=== PATIENT | male | born 1970 | race Caucasian/White ===

== ENCOUNTER → 2024-07-29 | Outpatient (CLI) | payer SELFPAY ==
[2024-07-29 12:54] LABS: Absolute Lymphocyte Count 2.24 X10^3/uL (0.83-4.51); Absolute Neutrophil Count 5.5 X10^3/uL (2.0-7.7); Basophil# 0.05 X10^3/uL; Basophil% 0.6 % (0-1); Eosinophil# 0.18 X10^3/uL; Eosinophils% 2.1 % (0-5); Hematocrit 46.8 % (40-54); Hemoglobin 15.4 g/dL (13.0-16.5); Lymphocyte # 2.24 X10^3/ul (0.83-4.51); Lymphocyte % 26.2 % (19-41); Mean Corp Hgb Conc 32.9 g/dL (32-36); Mean Corpuscular Hgb 30.3 pg (27.0-32.0); Mean Corpuscular Volume 91.9 fL (80-94); Mean Platelet Vol. 8.5 fl (6.2-12.0); Monocyte# 0.55 X10^3/uL; Monocyte% 6.4 % (0-10); NRBC Flagged by Analyzer 0 % (0-5); Neutrophil % 64.5 % (47-70); Platelet Count 443 K/mm3 (150-450); RBC Distribution Width CV 12.3 % (11.6-14.6); Red Blood Count 5.09 M/mm3 (4.6-6.2); White Blood Count 8.5 K/mm3 (4.4-11.0)
[2024-07-29 13:10] LABS: Vitamin B12 450 pg/mL (211-911)
[2024-07-29 13:12] LABS: Hemoglobin A1c 5.5 % (3.8-5.6)
[2024-07-29 13:17] LABS: ALB/GLOB Ratio 1.1 RATIO (0.9-2.4); AST(SGOT) 15 U/L (15-37); Alanine Aminotransfer ALT/SGPT 20 U/L (16-61); Alkaline Phosphatase 84 U/L (45-117); Anion Gap 7 (5-15); BUN 12 mg/dL (7-18); BUN/Creat Ratio 15.5 RATIO (10-20); Calcium,Total 9.1 mg/dL (8.5-10.1); Chloride 104 mmol/L (98-107); Cholesterol 201 mg/dL (200); Creatinine, Serum 0.77 mg/dL (0.70-1.30); EST Glomerular Filtration Rate 111 mL/min (>60); Est Glom Filt Rate - Afr Amer 135 mL/min (>60); Globulin 3.8 g/dL (2.2-4.2); Glucose 91 mg/dL (74-106); High Density Lipoprotein 46 mg/dL; Potassium 3.9 mmol/L (3.5-5.1); Protein, Total 7.8 g/dL (6.4-8.2); Sodium Level 138 mmol/L (136-145); Triglycerides 122 mg/dL; Very Low Density Lipoprotein 24 mg/dL (5-40)
== END | disposition home or self-care (01) ==
LOC: VSLAB 11:32
DX: R20.0 Anesthesia of skin (principal); D72.829 Elevated white blood cell count, unspecified; Z13.6 Encounter for screening for cardiovascular disorders; Z13.228 Encounter for screening for other metabolic disorders
CPT/HCPCS: 36415; 80053; 80061; 82607; 83036; 84443; 85025

== ENCOUNTER → 2024-10-15 | Outpatient (CLI) | payer BC, SELFPAY | END | disposition home or self-care (01) | LOC: PSN 08:28 | PROVIDERS: PCP Family Medicine; Referring Provider Internal Medicine Cardiovascular Disease; Visit Provider Internal Medicine Cardiovascular Disease | DX: I10 Essential (primary) hypertension (principal); R00.2 Palpitations; I25.10 Atherosclerotic heart disease of native coronary artery without angina pectoris | CPT/HCPCS: 93225; 93226 ==

== ENCOUNTER → 2024-10-22 | Outpatient (CLI) | payer BC, SELFPAY ==
--- NOTE | 2024-10-22 08:12 | STE_ITS ---
Reason For Study: ARRHYTHMIA Stress Results Protocol: [facility] Protocol Maximum Predicted HR: 166 bpm Target HR: 141 bpm % Maximum Predicted HR: 98 % DurationHeart Rate Stage (mm:ss) (bpm) BP BASELINE 68 128/77 STAGE 1 3:00 107 142/80 STAGE 2 3:00 121 158/80 STAGE 3 3:00 122 152/80 STAGE 4 2:00 163 162/86 RECOVERY 83 128/62 Stress Duration: 11:00 mm:ss Maximum Stress HR: 163 bpm Baseline Echocardiogram Findings Stress Echo Wall motion Data Resting WM Intermediate WM Stress WM ECHO/Stress Test Echo w/o Contrast Interpretation Summary Exercise stress echo. 54-year-old man with a history of chest discomfort and shortness of breath. Resting EKG demonstrates normal sinus rhythm with a rate of 68 bpm normal inter vals are noted resting blood pressure is 128/77 mmHg. The patient exercised according to the r egular [facility] protocol for total duration of 14 minutes. The maximum heart rate attained was 173 bpm w hich is 104% of max impacted heart rate. The patient completed 2 minutes into stage V of the [facility] protocol. At rest there were no ST or T wave changes noted to suggest ischemia and at peak exerci se there was approximately [address] depression noted in leads II, III and aVF a nd 1.7 mm noted in V6 suggestive but not complete diagnostic of ischemia. No clinical angina was note d the test was terminated due to completion of the protocol and leg fatigue. The peak blood pr essure was 168/86 which is a good blood pressure response to exercise. Stress echocardiogram. The resting echocardiogram demonstrated overall preserved left ventricular syst olic function estimated at 55%. No wall motion abnormalities were noted. The patient exercise d according to regular [facility] protocol there was thickening of all [place] except for the basal i nferior wall which appeared to have lack of improvement suggesting possible inferobasal hypokinesi s with exercise. Conclusion: Exercise stress echo with EKG as well as echocardiographic changes suggestive o f inferior basal hypokinesis. This was at a high workload. Ordering Physician: Alfie Teixeira Referring Physician: Alfie Teixeira Performed By: Brigette Ibanez, [facility]
== END | disposition home or self-care (01) ==
LOC: CVS 08:09
PROVIDERS: PCP Family Medicine; Referring Provider Internal Medicine Cardiovascular Disease; Visit Provider Internal Medicine Cardiovascular Disease
DX: I25.10 Atherosclerotic heart disease of native coronary artery without angina pectoris (principal); R00.2 Palpitations; I10 Essential (primary) hypertension
CPT/HCPCS: 93017; 93350

== ENCOUNTER → 2025-09-08 | Outpatient (CLI) | payer BC, SELFPAY ==
--- OUTSIDE RECORDS SUMMARY | 2025-09-08 07:17 | XMS RPT_ITS | CCD ---
Author Organization [facility] Care Team Providers Care Batch Unloader Name Role Phone Unavailable Primary Care Provider Unavailalison Tyler MD, Matty Blair Primary Care Provider CHARLIE DEAN Primary Care Unavailable JOSH GOODE Attending Unavailable Puneet, Renault Attending Unavailable Gray VSC, Rebecca Primary Care Unavailable Puneet, Alfie Attending Unavailable Puneet, Alfie Referring Unavailable Gray VSC, Rebecca Primary Care Unavailable Puneet, Alfie Attending Unavailable Gray VSC, Rebecca Primary Care Unavailable Gray VSC, Rebecca Referring Unavailable Puneet, Alfie Attending Unavailable Puneet, Renault Referring Unavailable Gray VSC, Rebecca Primary Care Unavailable PENCE, NEIL Attending Unavailable PENCE, NEIL Primary Care Unavailable Puneet, Renault Attending Unavailable Puneet, Renault Referring Unavailable Gray VSC, Rebecca Primary Care Unavailable Allergies Allergy Classification Reported Allergen(s) Allergy Type Date of Onset Reaction(s) Facility (19 sources) Aluminum aspirin; Translations: [ASPIRIN] Drug Allergy 3 Other, GI bleeding [facility] (18 sources) bee venom Propensity to adverse reactions 3 Swelling [facility] (19 sources) Penicillins; Translations: [PENICILLINS] Propensity to adverse reactions 3 Other [facility] (1 source) Aspirin Drug Allergy 5 [facility] (1 source) Mold Extract Drug Allergy 5 [facility] (1 source) Penicillins Drug allergy (disorder) 5 [facility] (1 source) bee venom protein (honey bee) Drug allergy (disorder) 5 [facility] Medications Current Medications Medication Drug Class(es) Dates Sig (Normalized) Sig (Original) predniSONE 20 mg oral tablet (4 sources) Start: 08-20-2023 End: 08-29-2023 predniSONE (Deltasone) 20 MG tablet Indications: Low back strain, subsequent encounter Take 3 tabs (60mg) daily for 3 days, then take 2 tabs (40mg) daily for 3 days, then take 1 tab (20mg) daily for 3 days. 18 tablet 0 08/20/2023 08/29/2023 Active Completed/Discontinued Medications Medication Drug Class(es) Dates Sig (Normalized) Sig (Original) cyclobenzaprine hydrochloride 10 mg oral tablet (5 sources) Muscle Relaxant Start: 07-31-2023 End: 09-29-2023 take 1 tablet by mouth three times daily as needed for muscle spasms cyclobenzaprine (Flexeril) 10 MG tablet Indications: Spasm of muscle of lower back Take 1 tablet (10 mg) by mouth 3 times daily as needed for muscle spasms. 30 tablet 0 07/31/2023 08/28/2023 Discontinued (Therapy completed) Problems Active Problems Problem Classification Problem Date Documented Date Episodic/Chronic Cardiac dysrhythmias (1 source) Palpitations; Translations: [Palpitations] Onset: 10-08-2024 Episodic Chronic obstructive pulmonary disease and bronchiectasis (8 sources) Pulmonary emphysema; Translations: [Other emphysema] Onset: 10-16-2023 10-16-2023 Chronic Conditions associated with dizziness or vertigo (1 source) Dizziness and giddiness; Translations: [Dizziness and giddiness] Onset: 10-08-2024 Episodic Coronary atherosclerosis and other heart disease (1 source) Atherosclerotic heart disease of [place] coronary artery without angina pectoris; Translations: [Atherosclerotic heart disease of [place] coronary artery without angina pectoris] Onset: 11-11-2024 Chronic Essential hypertension (1 source) Essential (primary) hypertension; Translations: [Essential (primary) hypertension] Onset: 11-06-2024 Chronic Fluid and electrolyte disorders (2 sources) Dehydration; Translations: [Dehydration] Onset: 04-08-2024 Episodic Other injuries and conditions due to external causes (2 sources) Other injury of unspecified body region, initial encounter; Translations: [Other injury of unspecified body region, initial encounter] Onset: 04-08-2024 Episodic Other lower respiratory disease (1 source) Dyspnea, unspecified; Translations: [Dyspnea, unspecified] Onset: 10-08-2024 Episodic Other nervous system disorders (1 source) Anesthesia of skin; Translations: [Anesthesia of skin] Onset: 09-08-2024 Episodic Other screening for suspected conditions (not mental disorders or infectious disease) (4 sources) Patient encounter status; Translations: [Encounter for screening for lipoid disorders] 08-28-2023 Episodic Peripheral and visceral atherosclerosis (8 sources) Arteriosclerotic vascular disease; Translations: [Unspecified atherosclerosis] Onset: 10-16-2023 10-16-2023 Chronic Sprains and strains (14 sources) Low back strain; Translations: [Strain of muscle, fascia and tendon of lower back, subsequent encounter] Onset: 08-20-2023 08-20-2023 Episodic Past or Other Problems Problem Classification Problem Date Documented Da te Episodic/Chronic Mood disorders (18 sources) Mood disorders Onset: 07-31-2023 07-31-2023 Other circulatory disease (19 sources) Elevated blood pressure; Translations: [Elevated blood-pressure reading, without diagnosis of hypertension] Onset: 08-20-2023 08-20-2023 Episodic Residual codes; unclassified (18 sources) Tobacco use and exposure - finding; Translations: [Tobacco use] Onset: 08-28-2023 08-28-2023 Episodic Spondylosis; intervertebral disc disorders; other back problems (20 sources) Spasm of muscle of lower back; Translations: [Muscle spasm of back] Onset: 07-31-2023 Resolved: 08-28-2023 07-31-2023 Episodic Results Test Name Value Interpretation Reference Range Facility 11-20-2024 36 Left a message to return call. [facility] 3611-19-2024 36 Matty Tyler MD4 hours ago (5:35 AM) Can we contact Kaye and see if he is agreeable to being scheduled for a screening lung CT scan? Left a message to return call. [facility] 3611-18-2024 36 Matty Tyler MD4 hours ago (5:35 AM) Can we contact Kaye and see if he is agreeable to being scheduled for a screening lung CT scan? Left a message to return call. Normal [facility] 36 Can we contact Kaye and see if he is agreeable to being scheduled for a screening lung CT scan? Normal [facility] 36on 11-13-2024 36 This patient has had a prior lung screening CT scan at [facility]. According to our records, he/she is now due for an annual lung screening CT scan. Please evaluate and order this annual screening if your patient still meets lung screening criteria. Normal [facility] Stress Test Echo w/o Contras ton 10-22-2024 Stress Test Echo w/o Contrast [facility] [address] [place] [address] Stress Test Echo w/o Contrast MR#: [id number] Acct: [id number] Name: KAYE CUEVA Rep #: [id number] : 1970 54 From: Alfie Teixeira MD Primary Care: Rebecca Castellano DO Status: G CLI Ordering Dr: Alfie Teixeira MD Sex: M H Reason For Study: ARRHYTHMIA Stress Results Protocol: [facility] Protocol Maximum Predicted HR: 166 bpm Target HR: 141 bpm % Maximum Predicted HR: 98 % DurationHeart Rate Stage (mm:ss) (bpm) BP BASELINE 68 128/77 STAGE 1 3:00 107 142/80 STAGE 2 3:00 121 158/80 STAGE 3 3:00 122 152/80 STAGE 4 2:00 163 162/86 RECOVERY 83 128/62 Stress Duration: 11:00 mm:ss Maximum Stress HR: 163 bpm Baseline Echocardiogram Findings Stress Echo Wall motion Data Resting WM Intermediate WM Stress WM ECHO/Stress Test Echo w/o Contrast Interpretation Summary Exercise stress echo. 54-year-old man with a history of chest discomfort and shortness of breath. Resting EKG demonstrates normal sinus rhythm with a rate of 68 bpm normal intervals are noted resting blood pressure is 128/77 mmHg. The patient exercised according to the regular [facility] protocol for total duration of 14 minutes. The maximum heart rate attained was 173 bpm which is 104% of max impacted heart rate. The patient completed 2 minutes into stage V of the [facility] protocol. At rest there were no ST or T wave changes noted to suggest ischemia and at peak exercise there was approximately [address] depression noted in leads II, III and aVF and 1.7 mm noted in V6 suggestive but not complete diagnostic of ischemia. No clinical angina was noted the test was terminated due to completion of the protocol and leg fatigue. The peak blood pressure was 168/86 which is a good blood pressure response to exercise. Stress echocardiogram. The resting echocardiogram demonstrated overall preserved left ventricular systolic function estimated at 55%. No wall motion abnormalities were noted. The patient exercised according to regular [facility] protocol there was thickening of all [place] except for the basal inferior wall which appeared to have lack of improvement suggesting possible inferobasal hypokinesis with exercise. Conclusion: Exercise stress echo with EKG as well as echocardiographic changes suggestive of inferior basal hypokinesis. This was at a high workload. Ordering Physician: Alfie Teixeira Referring Physician: Alfie Teixeira Performed By: Brigette Ibanez, LORI 10/22/24 1439 Date Alfie Teixeira MD CC: Dr. 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 Alfie Teixeira MD Status: DEP A MB Ordering Dr: Alfie Teixeira MD Date: 10/08/24 Location: [facility] Sex: M H Admitted: [facility]/12 Lead EKG performed by [facility] ECG Report Interpretation ----Sinus Rhythm - occasional ectopic ventricular beat -Left atrial enlargement. BORDERLINEElectronical ly signed on 10/13/2024 at 08:22 by Alfie Teixeira [employer] Version 8610 10/13/24 0828 Date Alfie Teixeira MD CC: Rebecca Castellano DO Date Dictated: 10/08/24 1051 Date Transcribed: 10/08/241050 [employer] Or Livestock Farm Manager: [place] Signed Normal [facility] Cardiology Visit Reporton Cardiology Visit Report [facility] [address] [place], [place] [address] OFFICE VISIT Date of Service: 10/08/24 MR#: [id number] Acct: [id number] Name: KAYE CUEVA Rep #: [id number] : 1970 Provider: Dr. Alfie Teixeira MD Age/Sex: 54/M Location: [facility] Status: Signed HPI HPI History of Present Illness Details: 54-year-old man with a history of hypertension who presents for an evaluation of palpitations and occasional chest discomfort and some shortness of breath. He does have a history of tobacco use and his lipid profile demonstrates a total cholesterol of 201 HDL of 46 and LDL of 131. He has had no dizziness or diaphoresis no near-syncope or syncope he has been compliant with his medications. He also is quite fastidious about his diet actually. He would like to discontinue tobacco use. He has had no yevs syncopal episodes and no sustained palpitations. His physical exam demonstrates clear lung peter regular rate and rhythm and no pedal edema his electrocardiogram demonstrates sinus rhythm with a rate of 85 bpm. 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 Accompanied by: Self Is patient in pain?: Yes Allergies Penicillins Allergy (Mild, Verified 10/08/24 10:46) PT UNSURE OF REACTION mold Adverse Reaction (Intermediate, Verified 10/08/24 10:46) Blue Lips aspirin Adverse Reaction (Mild, Verified 10/08/24 10:46) nosebleeds bee venom protein (honey bee) (bees) Adverse Reaction (Mild, Verified 10/08/24 10:46) Anaphylaxis Medications ???Medication ???Instructions ???Recorded ???Confirmed ???Type valsartan 320 mg tablet 320 mg PO QDAY 09/04/24 10/08/24 History Have you fallen in the past year?: No PFSH Medical History Acute dehydration Essential (primary) hypertension Dyspnea Atherosclerotic cardiovascular disease Palpitations Dizziness Surgical History Hx of carpal tunnel repair Family History Father Multiple sclerosis Heart disease Hypertension Mother Hypotension Social History Smoking Status: Current every day smoker alcohol intake: never substance use type: does not use ROS Const Const: Positive for headache(s); Negative for fatigue, weakness or weight gain ENT ENT: Positive for headache(s); Negative for dizziness, Nosebleed/epistaxis or balance problems Cardio Chest Pain: Yes Frequency: weekly (2x weekly) Character: other (pressure) Onset: exercise Location: right chest Duration: minutes (<5) Exacerbation: exercise Palpitations: Yes feels like its: skipping and other (missed beat) Edema: None Muscle aches with walking: None Resp Respiratory: Positive for SOB with activity; Negative for SOB at rest or SOB orthopnea SOB lying down GI GI: Negative nausea, vomiting or heartburn Musc Musc: Positive for joint pain (chronic; arthritis); Negative for muscle aches/ myalgia, muscle weakness or balance problems Neuro Neuro: Positive for lightheadedness (singular episode with stairs), near syncope and headache(s); Negative for dizziness, syncope or weakness Endo Endo: Negative for fatigue Cardiology Exam Const Appearance: cooperative, healthy appearing, no acute distress, well developed and well groomed Nutritional Appearance: average body habitus and well nourished Orientation: alert, awake and oriented x3 Head Head: normal to inspection, normocephalic and atraumatic Ears: hearing grossly normal bilaterally and external ears normal Nose: external nose normal, nares normal, nasal mucous membranes and turbinates normal, septum normal and no nasal discharge Face and Sinus: face symmetric Mouth: oral mucosae normal, tongue normal, oropharynx normal and moist mucous membranes Teeth and gingiva: dentition normal Throat: posterior oropharynx normal, tonsils normal and uvula midline Eyes General: appearance normal, both eyes and all related structures Eyelids: eyelids normal Conjunctivae: conjunctivae normal Pupils: PERRL, normal by confrontation and accommodation normal EOM: EOM intact bilaterally Neck Neck: normal visual inspection, trachea midline and no JVD JVD: +5 Carotids: normal carotid upstroke and bounding pulses Chest Chest inspection: normal inspection of the chest, symmetric chest movement and normal respiratory effort Auscultation: Bilateral: Clear to Auscultation Cardio Palpation: normal PMI (more content not included)... Normal [facility] CBC W/Diff, Automatedon 11-0 -2023 Absolute Lymph 2.24 X10 3/uL Normal 0.83-4.51 [facility] Comment on above: Performed By: #### L 100.0100, L500.4050, L500.4100, L501.9520, L503.0105, L501.9985 #### [facility] [address] [place], [address] Absolute Neut 5.5 X10 3/uL Normal 2.0-7.7 [facility] Comment on above: Performed By: #### L 100.0100, L500.4050, L500.4100, L501.9520, L503.0105, L501.9985 #### [facility] [address] [place], [address] Basophils/100 WBC (Bld) 0.6 % Normal 0-1 [facility] Comment on above: Performed By: #### L 100.0100, L500.4050, L500.4100, L501.9520, L503.0105, L501.9985 #### [facility] [address] [place], [address] Eosinophils/100 WBC (Bld) 2.1 % Normal 0-5 [facility] Comment on above: Performed By: #### L 100.0100, L500.4050, L500.4100, L501.9520, L503.0105, L501.9985 #### [facility] [address] [place], [address] Erythrocyte distribution width (RBC) [Ratio] 12.3 % Normal 11.6-14.6 [facility] Comment on above: Performed By: #### L 100.0100, L500.4050, L500.4100, L501.9520, L503.0105, L501.9985 #### [facility] [address] [place], [address] Hematocrit (Bld) [Volume fraction] 46.8 % Normal 40-54 [facility] Comment on above: Performed By: #### L 100.0100, L500.4050, L500.4100, L501.9520, L503.0105, L501.9985 #### [facility] [address] [place], [address] Hemoglobin (Bld) [Mass/Vol] 15.4 g/dL Normal 13.0-16.5 [facility] Comment on above: Performed By: #### L 100.0100, L500.4050, L500.4100, L501.9520, L503.0105, L501.9985 #### [facility] [address] [place], [address] IG% 0.200 Normal 0.0-0.9 [facility] Comment on above: Result Comment: IG% - Immature Granulocytes (promyelocytes, myelocytes and metamyelocytes) > 1% indicates that a LEFT SHIFT is Present. Performed By: #### L 100.0100, L500.4050, L500.4100, L501.9520, L503.0105, L501.9985 #### [facility] [address] [place], [address] Lymphocytes/100 WBC (Bld) 26.2 % Normal 19-41 [facility] Comment on above: Performed By: #### L 100.0100, L500.4050, L500.4100, L501.9520, L503.0105, L501.9985 #### [facility] [address] [place], [address] MCH (RBC) [Entitic mass] 30.3 pg Normal 27.0-32.0 [facility] Comment on above: Performed By: #### L 100.0100, L500.4050, L500.4100, L501.9520, L503.0105, L501.9985 #### [facility] [address] [place], [address] MCHC (RBC) [Mass/Vol] 32.9 g/dL Normal 32-36 [facility] Comment on above: Performed By: #### L 100.0100, L500.4050, L500.4100, L501.9520, L503.0105, L501.9985 #### [facility] [address] [place], [address] MCV (RBC) [Entitic vol] 91.9 fL Normal 80-94 [facility] Comment on above: Performed By: #### L 100.0100, L500.4050, L500.4100, L501.9520, L503.0105, L501.9985 #### [facility] [address] [place], [address] Monocytes/100 WBC (Bld) 6.4 % Normal 0-10 [facility] Comment on above: Performed By: #### L 100.0100, L500.4050, L500.4100, L501.9520, L503.0105, L501.9985 #### [facility] [address] [place], [address] Neutrophils/100 WBC (Bld) 64.5 % Normal 47-70 [facility] Comment on above: Performed By: #### L 100.0100, L500.4050, L500.4100, L501.9520, L503.0105, L501.9985 #### [facility] [address] [place], [address] Nucleated RBC (Bld) [#/Vol] 0 10*3/uL Normal 0-5 [facility] Comment on above: Performed By: #### L 100.0100, L500.4050, L500.4100, L501.9520, L503.0105, L501.9985 #### [facility] [address] [place], [address] Platelet mean volume (Bld) [Entitic vol] 8.5 fL Normal 6.2-12.0 [facility] Comment on above: Performed By: #### L 100.0100, L500.4050, L500.4100, L501.9520, L503.0105, L501.9985 #### [facility] [address] [place], [address] Platelets (Bld) [#/Vol] 443 10*3/uL Normal 150-450 [facility] Comment on above: Performed By: #### L 100.0100, L500.4050, L500.4100, L501.9520, L503.0105, L501.9985 #### [facility] [address] [place], [address] RBC (Bld) [#/Vol] 5.09 10*6/uL Normal 4.6-6.2 [facility] Comment on above: Performed By: #### L 100.0100, L500.4050, L500.4100, L501.9520, L503.0105, L501.9985 #### [facility] [address] [place], [address] RDW SD 42.0 fl Normal 35.1-43.9 [facility] Comment on above: Performed By: #### L 100.0100, L500.4050, L500.4100, L501.9520, L503.0105, L501.9985 #### [facility] [address] [place], [address] WBC (Bld) [#/Vol] 8.5 10*3/uL Normal 4.4-11.0 [facility] Comment on above: Performed By: #### L 100.0100, L500.4050, L500.4100, L501.9520, L503.0105, L501.9985 #### [facility] [address] [place], [address] Comprehensive Metabolic [facility] 07-29-2024 Albumin [Mass/Vol] 4.0 g/dL Normal 3.2-5.0 [facility] Comment on above: Performed By: #### L 100.0100, L500.4050, L500.4100, L501.9520, L503.0105, L501.9985 #### [facility] [address] [place], [address] Albumin/Globulin [Mass ratio] 1.1 {ratio} Normal 0.9-2.4 [facility] Comment on above: Performed By: #### L 100.0100, L500.4050, L500.4100, L501.9520, L503.0105, L501.9985 #### [facility] [address] [place], [address] ALK P 84 U/L Normal 45-117 [facility] Comment on above: Performed By: #### L 100.0100, L500.4050, L500.4100, L501.9520, L503.0105, L501.9985 #### [facility] [address] [place], [address] ALT [Catalytic activity/Vol] 20 U/L Normal 16-61 [facility] Comment on above: Performed By: #### L 100.0100, L500.4050, L500.4100, L501.9520, L503.0105, L501.9985 #### [facility] [address] [place], [address] AST [Catalytic activity/Vol] 15 U/L Normal 15-37 [facility] Comment on above: Performed By: #### L 100.0100, L500.4050, L500.4100, L501.9520, L503.0105, L501.9985 #### [facility] [address] [place], [address] Bilirubin [Mass/Vol] 0.60 mg/dL Normal 0.20-1.00 [facility] Comment on above: Result Comment: For patients on eltrombopag therapy, use of Dimension [place] TBIL is not recommended. Performed By: #### L 100.0100, L500.4050, L500.4100, L501.9520, L503.0105, L501.9985 #### [facility] [address] [place], [address] BUN/CRE 15.5 RATIO Normal 10-20 [facility] Comment on above: Performed By: #### L 100.0100, L500.4050, L500.4100, L501.9520, L503.0105, L501.9985 #### [facility] [address] [place], [address] CA,Total 9.1 mg/dL Normal 8.5-10.1 [facility] Comment on above: Performed By: #### L 100.0100, L500.4050, L500.4100, L501.9520, L503.0105, L501.9985 #### [facility] [address] [place], [address] Chloride [Moles/Vol] 104 mmol/L Normal 98-107 [facility] Comment on above: Performed By: #### L 100.0100, L500.4050, L500.4100, L501.9520, L503.0105, L501.9985 #### [facility] [address] [place], [address] CO2 [Moles/Vol] 28.0 mmol/L Normal 21.0-32.0 [facility] Comment on above: Performed By: #### L 100.0100, L500.4050, L500.4100, L501.9520, L503.0105, L501.9985 #### [facility] [address] [place], [address] Creatinine [Mass/Vol] 0.77 mg/dL Normal 0.70-1.30 [facility] Comment on above: Result Comment: The validity of the calculated GFR GFRAA in patients over 70 years has not been determined. Clinical correlation is essential. Performed By: #### L 100.0100, L500.4050, L500.4100, L501.9520, L503.0105, L501.9985 #### [facility] [address] [place], [address] EST GFR - AA 135 mL/min Normal >60 [facility] Comment on above: Result Comment: Afri can [place] GFR Calc Performed By: #### L 100.0100, L500.4050, L500.4100, L501.9520, L503.0105, L501.9985 #### [facility] [address] [place], [address] GAP 7 Normal 5-15 [facility] Comment on above: Performed By: #### L 100.0100, L500.4050, L500.4100, L501.9520, L503.0105, L501.9985 #### [facility] [address] [place], [address] GFR/1.73 sq M.predicted among non-blacks MDRD (S/P/Bld) [Vol rate/Area] 111 mL/min/{1.73_m2} Normal >60 [facility] Comment on above: Result Comment: Non- GFR Calc Performed By: #### L 100.0100, L500.4050, L500.4100, L501.9520, L503.0105, L501.9985 #### [facility] [address] [place], [address] Globulin (S) [Mass/Vol] 3.8 g/dL Normal 2.2-4.2 [facility] Comment on above: Performed By: #### L 100.0100, L500.4050, L500.4100, L501.9520, L503.0105, L501.9985 #### [facility] [address] [place], [address] Glucose [Mass/Vol] 91 mg/dL Normal 74-106 [facility] Comment on above: Performed By: #### L 100.0100, L500.4050, L500.4100, L501.9520, L503.0105, L501.9985 #### [facility] [address] [place], [address] Potassium [Moles/Vol] 3.9 mmol/L Normal 3.5-5.1 [facility] Comment on above: Performed By: #### L 100.0100, L500.4050, L500.4100, L501.9520, L503.0105, L501.9985 #### [facility] [address] [place], [address] Sodium [Moles/Vol] 138 mmol/L Normal 136-145 [facility] Comment on above: Performed By: #### L 100.0100, L500.4050, L500.4100, L501.9520, L503.0105, L501.9985 #### [facility] [address] [place], [address] T PROT 7.8 g/dL Normal 6.4-8.2 [facility] Comment on above: Performed By: #### L 100.0100, L500.4050, L500.4100, L501.9520, L503.0105, L501.9985 #### [facility] [address] [place], [address] Urea nitrogen [Mass/Vol] 12 mg/dL Normal 7-18 [facility] Comment on above: Performed By: #### L 100.0100, L500.4050, L500.4100, L501.9520, L503.0105, L501.9985 #### [facility] [address] [place], [address] Hemoglobin A1con 07-29-2024 HbA1c (Bld) [Mass fraction] 5.5 % Normal 3.8-5.6 [facility] Comment on above: Result Comment: Norm al < 5.7 % Prediabetic 5.7 - 6.4 % Diabetic >or= 6.5 % Please note range changes. Performed By: #### L 100.0100, L500.4050, L500.4100, L501.9520, L503.0105, L501.9985 #### [facility] [address] [place], [address] Lipid Profileon 07-29-2024 Cholesterol [Mass/Vol] 201 mg/dL High 200 [facility] Comment on above: Result Comment: <200 mg/dL Desirable 200-240 mg/dL Borderline >240 mg/dL High Risk Performed By: #### L 100.0100, L500.4050, L500.4100, L501.9520, L503.0105, L501.9985 #### [facility] [address] [place], [address] Cholesterol in HDL [Mass/Vol] 46 mg/dL Normal [facility] Comment on above: Result Comment: The drugs N-Acetylcysteine and Metamizole may falsely depress this assay. Reference Range HDL <40 mg/dL Low HDL Cholesterol HDL >or= 60 mg/dL High HDL Cholesterol Performed By: #### L 100.0100, L500.4050, L500.4100, L501.9520, L503.0105, L501.9985 #### [facility] [address] [place], [address] Cholesterol in LDL [Mass/Vol] 131 mg/dL High 0-130 [facility] Comment on above: Performed By: #### L 100.0100, L500.4050, L500.4100, L501.9520, L503.0105, L501.9985 #### [facility] [address] [place], [address] Cholesterol in VLDL [Mass/Vol] 24 mg/dL Normal 5-40 [facility] Comment on above: Performed By: #### L 100.0100, L500.4050, L500.4100, L501.9520, L503.0105, L501.9985 #### [facility] [address] [place], [address] Triglyceride [Mass/Vol] 122 mg/dL Normal [facility] Comment on above: Result Comment: The drugs N-Acetylcysteine and Metamizole may falsely depress this assay. Serum Triglycerides Reference Interval Normal <150 mg/dL Borderline high 150 - 199 mg/dL High 200 - 499 mg/dL Very High > or = 500 mg/dL Performed By: #### L 100.0100, L500.4050, L500.4100, L501.9520, L503.0105, L501.9985 #### [facility] [address] [place], [address] Thyroid Stim Hormone (TSH)on 07-29-2024 TSH 1.370 uIU/mL Normal 0.358-3.740 [facility] Comment on above: Performed By: #### L 100.0100, L500.4050, L500.4100, L501.9520, L503.0105, L501.9985 #### [facility] [address] [place], [address] Vitamin B12on 07-29-2024 Cobalamin (Vitamin B12) [Mass/Vol] 450 pg/mL Normal 211-911 [facility] Comment on above: Performed By: #### L 100.0100, L500.4050, L500.4100, L501.9520, L503.0105, L501.9985 #### [facility] [address] [facility] [place], [address] BASIC METABOLIC PANELon 07- Anion gap [Moles/Vol] 25 mmol/L High 10-20 [facility] Comment on above: Order Comment: [facility] has implemented the eGFR calculation approach that does not have a coefficient for race that conforms to the NKF-ASN Task Force Recommendations. Performed By: #### 4 6124 #### [address] [address] Monroe Hernandez M.D. [id number] Calcium [Mass/Vol] 10.4 mg/dL High 8.4-10.2 [facility] Comment on above: Order Comment: [facility] has implemented the eGFR calculation approach that does not have a coefficient for race that conforms to the NKF-ASN Task Force Recommendations. Performed By: #### 4 6124 #### [facility] [address] [place] [address] Monroe Hernandez M.D. [id number] Chloride [Moles/Vol] 93 mmol/L Low 98-108 [facility] Comment on above: Order Comment: [facility] has implemented the eGFR calculation approach that does not have a coefficient for race that conforms to the NKF-ASN Task Force Recommendations. Performed By: #### 4 6124 #### SH [address] [address] Monroe Hernandez M.D. [id number] Creatinine [Mass/Vol] 0.90 mg/dL Normal 0.50-1.30 [facility] Comment on above: Order Comment: [facility] has implemented the eGFR calculation approach that does not have a coefficient for race that conforms to the NKF-ASN Task Force Recommendations. Performed By: #### 4 6124 #### SH [address] [address] Monroe Hernandez M.D. [id number] EGFR 102 mL/min/1.73 m2 Normal >=60 [facility] Comment on above: Order Comment: [facility] has implemented the eGFR calculation approach that does not have a coefficient for race that conforms to the NKF-ASN Task Force Recommendations. Result Comment: Nikole mated GFR was calculated using the 2020 CKD-EPI creatinine equation. Performed By: #### 4 6124 #### [facility] [address] [place] [address] Monroe Hernandez M.D. [id number] Glucose [Mass/Vol] 95 mg/dL Normal 65-99 [facility] Comment on above: Order Comment: [facility] has implemented the eGFR calculation approach that does not have a coefficient for race that conforms to the NKF-ASN Task Force Recommendations. Performed By: #### 4 6126 #### [facility] [address] [place] [address] Monroe Hernandez M.D. [id number] HCO3 (Bld) [Moles/Vol] 24 mmol/L Normal 21-32 [facility] Comment on above: Order Comment: [facility] has implemented the eGFR calculation approach that does not have a coefficient for race that conforms to the NKF-ASN Task Force Recommendations. Performed By: #### 4 6124 #### [facility] [address] [place] [address] Monroe Hernandez M.D. [id number] Potassium [Moles/Vol] 5.2 mmol/L High 3.5-5.1 [facility] Comment on above: Order Comment: [facility] has implemented the eGFR calculation approach that does not have a coefficient for race that conforms to the NKF-ASN Task Force Recommendations. Performed By: #### 4 6124 #### [place] [id number] Monroe Hernandez M.D. [id number] Sodium [Moles/Vol] 137 mmol/L Normal 135-145 [facility] Comment on above: Order Comment: [facility] has implemented the eGFR calculation approach that does not have a coefficient for race that conforms to the NKF-ASN Task Force Recommendations. Performed By: #### 4 6124 #### SH [address] [address] Monroe Hernandez M.D. [id number] Urea nitrogen [Mass/Vol] 30 mg/dL High 8-25 [facility] Comment on above: Order Comment: [facility] has implemented the eGFR calculation approach that does not have a coefficient for race that conforms to the NKF-ASN Task Force Recommendations. Performed By: #### 4 6124 #### [facility] [address] [place] [address] Monroe Hernandez M.D. [id number] Urea nitrogen/Creatinine [Mass ratio] 33.3 mg/mg High 10.0-20.0 [facility] Comment on above: Order Comment: [facility] has implemented the eGFR calculation approach that does not have a coefficient for race that conforms to the NKF-ASN Task Force Recommendations. Performed By: #### 4 6124 #### [facility] [address] [place] [address] Monroe Hernandez M.D. [id number] CBC WITH AUTO DIFFERENTIALon 04-08-2024 BASOPHILS ABSOLUTE COUNT 0.02 K/mcL Normal 0.00-0.30 [facility] Comment on above: Performed By: #### L [id number] #### [facility] [address] [place] [address] Monroe Hernandez M.D. [id number] Basophils/100 WBC (Bld) 0.1 % Normal [facility] Comment on above: Performed By: #### L [id number] #### [facility] [address] [place] [address] Monroe Hernandez M.D. [id number] Eosinophils (Bld) [#/Vol] 0.01 10*3/uL Normal 0.00-0.50 [facility] Comment on above: Performed By: #### L [id number] #### [facility] [address] [place] [address] Monroe Hernandez M.D. [id number] Eosinophils/100 WBC (Bld) 0.1 % Normal [facility] Comment on above: Performed By: #### L [id number] #### [facility] [address] [place] [address] Monroe Hernandez M.D. [id number] Erythrocyte distribution width (RBC) [Ratio] 11.9 % Normal 11.6-14.8 [facility] Comment on above: Performed By: #### L [id number] #### [facility] [address] [place] [address] Monroe Hernandez M.D. [id number] Hematocrit (Bld) [Volume fraction] 43.1 % Normal 41.0-53.0 [facility] Comment on above: Performed By: #### L [id number] #### [facility] [address] [place] [address] Monroe Hernandez M.D. [id number] Hemoglobin (Bld) [Mass/Vol] 14.7 g/dL Normal 13.5-17.5 [facility] Comment on above: Performed By: #### L [id number] #### SH [place] [address] Monroe Hernandez M.D. [id number] IG ABSOLUTE 0.03 K/mcL Normal 0.00-0.30 [facility] Comment on above: Performed By: #### L [id number] #### SH [place] [address] Monroe Hernandez M.D. [id number] IG PERCENT 0.20 % Normal [facility] Comment on above: Result Comment: The IG parameter is the percentage of metamyelocytes, myelocytes and promyelocytes. An immature granulocyte count (IG) of 1% or more suggests the possibility of infection, an IG count of 3% is very likely related to an infection. Performed By: #### L [id number] #### SH [place] [address] Monroe Hernandez M.D. [id number] Lymphocytes (Bld) [#/Vol] 1.41 10*3/uL Normal 0.90-4.00 [facility] Comment on above: Performed By: #### L [id number] #### SH [place] [address] Monroe Hernandez M.D. [id number] Lymphocytes/100 WBC (Bld) 9.8 % Normal [facility] Comment on above: Performed By: #### L [id number] #### SH [place] [address] Monroe Hernandez M.D. [id number] MCH (RBC) [Entitic mass] 31.3 pg Normal 26.0-34.0 [facility] Comment on above: Performed By: #### L [id number] #### SH [address] [address] Monroe Hernandez M.D. [id number] MCV (RBC) [Entitic vol] 91.7 fL Normal 80.0-100.0 [facility] Comment on above: Performed By: #### L [id number] #### [facility] [address] [place] [address] Monroe Hernandez M.D. [id number] MEAN CORPUSCULAR HEMOGLOBIN CONC 34.1 g/dL Normal 31.0-37.0 [facility] Comment on above: Performed By: #### L [id number] #### [facility] [address] [place] [address] Monroe Hernandez M.D. [id number] Monocytes (Bld) [#/Vol] 0.88 10*3/uL Normal 0.30-0.90 [facility] Comment on above: Performed By: #### L [id number] #### [facility] [address] [place] [address] Monroe Hernandez M.D. [id number] Monocytes/100 WBC (Bld) 6.1 % Normal [facility] Comment on above: Performed By: #### L [id number] #### [facility] [address] [place] [address] Monroe Hernandez M.D. [id number] NEUTROPHILS ABSOLUTE COUNT 12.02 K/mcL High 1.70-7.00 [facility] Comment on above: Performed By: #### L [id number] #### [facility] [address] [place], [place] [address] Monroe Hernandez M.D. [id number] Neutrophils/100 WBC (Bld) 83.7 % Normal [facility] Comment on above: Performed By: #### L [id number] #### [facility] [address] [place] [address] Monroe Hernandez M.D. [id number] Platelet mean volume (Bld) [Entitic vol] 8.2 fL Low 9.4-12.4 [facility] Comment on above: Performed By: #### L [id number] #### [facility] [address] [place] [address] Monroe Hernandez M.D. [id number] Platelets (Bld) [#/Vol] 431 10*3/uL High 150-400 [facility] Comment on above: Performed By: #### L [id number] #### [facility] [address] [place] [address] Monroe Hernandez M.D. [id number] RBC (Bld) [#/Vol] 4.70 10*6/uL Normal 4.50-5.90 [facility] Comment on above: Performed By: #### L [id number] #### [facility] [address] [place], [place] [address] Monroe Hernandez M.D. [id number] WBC (Bld) [#/Vol] 14.37 10*3/uL High 4.50-11.00 [facility] Comment on above: Performed By: #### L [id number] #### [facility] [address] [place] [address] Monroe Hernandez M.D. [id number] CPKon 04-08-2024 CPK 754 U/L High 60-225 [facility] Comment on above: Performed By: #### 4 [id number] #### [facility] [address] [place] [address] Monroe Hernandez M.D. [id number] ED Prov Noteon 04-08-2024 ED Prov Note ED PROVIDER NOTE [facility] NAME: Kaye Cueva AGE: 53 y.o. : 1970 VISIT DATE: 04/08/2024 CSN: [id number] PCP: Charlie Dean, RADHA Chief Complaint Patient presents with Headache Pt to room 2. States he was biking today and started getting a headache and dizzy. States he has biked 98 miles today and had to stop to lay down. States he has had a bag of tomatoes to eat today and has been drinking water throughout the day. Patient stated he had to go to the court, but no other transportation, he had to ride his bike there. Denied fever, cough, shortness of breath or chest pain. Patient did feel some left lower rib pain initially, and some muscle ache and fatigue. Denied nausea, abdominal pain or diarrhea or urinary symptoms. History reviewed. No pertinent past medical history. History reviewed. No pertinent surgical history. History reviewed. No pertinent family history. Social History Socioeconomic History Marital status: Tobacco Use Smoking status: Former Types: Cigarettes Smokeless tobacco: Never Vaping Use Vaping status: Never Used Substance and Sexual Activity Alcohol use: Never Drug use: Never No current outpatient medications on file prior to encounter. Allergies Allergen Reactions Aspirin GI Bleeding Penicillins Other (See Comments) Lips turn blue Review of Systems Constitutional: Negative for chills and fever. HENT: Negative for congestion, ear pain, rhinorrhea and sore throat. Eyes: Negative for pain, discharge, redness and visual disturbance. Respiratory: Negative for cough, shortness of breath and wheezing. Cardiovascular: Negative for chest pain, palpitations and leg swelling. Gastrointestinal: Negative for abdominal distention, abdominal pain, constipation, diarrhea, nausea and vomiting. Genitourinary: Negative for dysuria, frequency and urgency. Musculoskeletal: Positive for myalgias. Negative for back pain. Skin: Negative for rash. Neurological: Positive for headaches. Negative for tremors, seizures, syncope, speech difficulty and light-headedness. Patient Vitals for the past 24 hrs: BP Temp Temp src Pulse Resp SpO2 Weight 04/08/24 1859 136/81 -- -- 88 18 98 % -- 04/08/24 1624 (!) 164/93 98.3 degrees F (36.8 degrees C) Oral (!) 110 18 97 % 68 kg (150 lb) Physical Exam Constitutional: General: He is not in acute distress. Comments: Slight fatigue appearance HENT: Head: Normocephalic and atraumatic. Nose: Nose normal. Mouth/Throat: Mouth: Mucous membranes are dry. Eyes: Extraocular Movements: Extraocular movements intact. Conjunctiva/sclera: Conjunctivae normal. Pupils: Pupils are equal, round, and reactive to light. Cardiovascular: Rate and Rhythm: Regular rhythm. Tachycardia present. Heart sounds: Normal heart sounds. No murmur heard. Comments: Mild sinus tachycardia Musculoskeletal: General: No deformity. Normal range of motion. Cervical back: Normal range of motion and neck supple. No rigidity. Pulmonary: Effort: Pulmonary effort is normal. No respiratory distress. Breath sounds: Normal breath sounds. No stridor. No wheezing, rhonchi or rales. Chest: Chest wall: No tenderness. Abdominal: General: Abdomen is flat. Bowel sounds are normal. There is no distension. Palpations: Abdomen is soft. Tenderness: There is no abdominal tenderness. There is no right CVA tenderness, left CVA tenderness, guarding or rebound. Lymphadenopathy: Cervical: No cervical adenopathy. Skin: General: Skin is warm and dry. Capillary Refill: Capillary refill takes less than 2 seconds. Findings: No rash. Neurological: General: No focal deficit present. Mental Status: He is alert and oriented to person, place, and time. Cranial Nerves: No cranial nerve deficit. . Laboratory & Radiographic Imaging (if done): Results for orders placed or performed during the hospital encounter of 04/08/24 BMP Result Value Ref Range Sodium 137 135 - 145 mmol/L Potassium 5.2 (H) 3.5 - 5.1 mmol/L Chloride 93 (L) 98 - 108 mmol/L Bicarbonate 24 21 - 32 mmol/L Anion Gap 25 (H) 10 - 20 mmol/L Glucose 95 65 - 99 mg/dL BUN 30 (H) 8 - 25 mg/dL Creatinine 0.90 0.50 - 1.30 mg/dL eGFR 102 >=60 mL/min/1.73 m2 BUN/Creatinine Ratio 33.3 (H) 10.0 - 20.0 Calcium 10.4 (H) 8.4 - 10.2 mg/dL Hepatic Function Panel (LFT) Result Value Ref Range Total Protein 8.5 (H) 6.0 - 8.0 g/dL Albumin 4.8 3.2 - 5.2 g/dL Total Bilirubin 0.5 0.0 - 1.3 mg/dL Bilirubin, Direct 0.2 0.0 - 0.4 mg/dL Alkaline Phosphatase 87 40 - 150 U/L AST 27 0-50 U/L U/L ALT 17 0-50 U/L U/L Troponin Result Value Ref Range Troponin T 24 (CH) <=22 ng/L Troponin T Interpretation Possible acute cardiac injury. CPK NO MB Result Value Ref Range Total CK 754 (H) 60 - 225 U/L Urinalysis Result Value Ref Range Color, Urine Yellow Colorless, Yellow Clarity, Urine Clear Clear Specific [place] 1. (more content not included)... Normal [facility] HEPATIC FUNCTION PANELon Albumin [Mass/Vol] 4.8 g/dL Normal 3.2-5.2 [facility] Comment on above: Performed By: #### 4 5866 #### SH [address] [address] Monroe Hernandez M.D. [id number] ALP [Catalytic activity/Vol] 87 U/L Normal 40-150 [facility] Comment on above: Performed By: #### 4 5866 #### [facility] [address] [place] [address] Monroe Hernandez M.D. [id number] ALT [Catalytic activity/Vol] 17 U/L Normal 0-50 U/L [facility] Comment on above: Performed By: #### 4 5866 #### [facility] [address] [place] [address] Monroe Hernandez M.D. [id number] AST [Catalytic activity/Vol] 27 U/L Normal 0-50 U/L [facility] Comment on above: Performed By: #### 4 5866 #### [facility] [address] [place] [address] Monroe Hernandez M.D. [id number] Bilirubin [Mass/Vol] 0.5 mg/dL Normal 0.0-1.3 [facility] Comment on above: Performed By: #### 4 5866 #### [facility] [address] [place] [address] Monroe Hernandez M.D. [id number] Bilirubin.indirect [Mass/Vol] 0.2 mg/dL Normal 0.0-0.4 [facility] Comment on above: Performed By: #### 4 5866 #### [facility] [address] [place] [address] Monroe Hernandez M.D. [id number] Protein [Mass/Vol] 8.5 g/dL High 6.0-8.0 [facility] Comment on above: Performed By: #### 4 5866 #### [facility] [address] [place], [place] [address] Monroe Hernandez M.D. [id number] TROPONINon 04-08-2024 TROPONIN T DELTA CHANGE INTERPRETATION Probable non-acute cardiac injury or late presentation of acute injury. Normal [facility] Comment on above: Performed By: #### 4 6608 #### [facility] [address] [place] [address] Monroe Hernandez M.D. [id number] TROPONIN T DELTA DIFFERENCE -3 ng/L Normal < = -/+ 7 change [facility] Comment on above: Performed By: #### 4 6608 #### [facility] [address] [place] [address] Monroe Hernandez M.D. [id number] TROPONIN T NG/L 21 ng/L Normal <=22 [facility] Comment on above: Performed By: #### 4 6608 #### SH [place] [address] Monroe Hernandez M.D. [id number] BASELINE TROPONIN T NG/L 24 ng/L Off scale high <=22 [facility] Comment on above: Performed By: #### 4 6608 #### SH [place] [address] Monroe Hernandez M.D. [id number] TROPONIN T INTERPRETATION Possible acute cardiac injury. Normal [facility] Comment on above: Performed By: #### 4 6608 #### SH [place] [address] Monroe Hernandez M.D. [id number] URINALYSISon 04-08-2024 BACTERIA, URINE Rare Abnormal None Seen [facility] Comment on above: Order Comment: Micro scopic examination is performed on all urinalysis samples and only positive findings are reported. The test for blood on the chemical analytic portion of urinalysis may also be positive due to hemoglobinuria and myoglobinuria and if red blood cells are present they are quantified by microscopic examination. Performed By: #### 4 6625 #### SH [place] [address] Monroe Hernandez M.D. [id number] BILIRUBIN, URINE Negative Normal Negative [facility] Comment on above: Order Comment: Micro scopic examination is performed on all urinalysis samples and only positive findings are reported. The test for blood on the chemical analytic portion of urinalysis may also be positive due to hemoglobinuria and myoglobinuria and if red blood cells are present they are quantified by microscopic examination. Performed By: #### 4 6625 #### SH [place] [address] Monroe Hernandez M.D. [id number] BLOOD, URINE Negative Normal Negative [facility] Comment on above: Order Comment: Micro scopic examination is performed on all urinalysis samples and only positive findings are reported. The test for blood on the chemical analytic portion of urinalysis may also be positive due to hemoglobinuria and myoglobinuria and if red blood cells are present they are quantified by microscopic examination. Performed By: #### 4 6625 #### SH [place] [address] Monroe Hernandez M.D. [id number] Clarity (U) Clear Normal Clear [facility] Comment on above: Order Comment: Micro scopic examination is performed on all urinalysis samples and only positive findings are reported. The test for blood on the chemical analytic portion of urinalysis may also be positive due to hemoglobinuria and myoglobinuria and if red blood cells are present they are quantified by microscopic examination. Performed By: #### 4 6625 #### SH [place] [address] Monroe Hernandez M.D. [id number] Color (U) Yellow Normal Colorless, Yellow [facility] Comment on above: Order Comment: Micro scopic examination is performed on all urinalysis samples and only positive findings are reported. The test for blood on the chemical analytic portion of urinalysis may also be positive due to hemoglobinuria and myoglobinuria and if red blood cells are present they are quantified by microscopic examination. Performed By: #### 4 6625 #### SH [place] [address] Monroe Hernandez M.D. [id number] Glucose Ql (U) Negative Normal [facility] Comment on above: Order Comment: Micro scopic examination is performed on all urinalysis samples and only positive findings are reported. The test for blood on the chemical analytic portion of urinalysis may also be positive due to hemoglobinuria and myoglobinuria and if red blood cells are present they are quantified by microscopic examination. Performed By: #### 4 [id number] #### [facility] [place] [address] Monroe Hernandez M.D. [id number] Ketones Ql (U) 20 mg/dL Abnormal Negative [facility] Comment on above: Order Comment: Micro scopic examination is performed on all urinalysis samples and only positive findings are reported. The test for blood on the chemical analytic portion of urinalysis may also be positive due to hemoglobinuria and myoglobinuria and if red blood cells are present they are quantified by microscopic examination. Performed By: #### 4 [id number] #### [facility] [address] [place] [address] Monroe Hernandez M.D. [id number] Leukocyte esterase Test strip Ql (U) Negative Normal Negative [facility] Comment on above: Order Comment: Micro scopic examination is performed on all urinalysis samples and only positive findings are reported. The test for blood on the chemical analytic portion of urinalysis may also be positive due to hemoglobinuria and myoglobinuria and if red blood cells are present they are quantified by microscopic examination. Performed By: #### 4 [id number] #### [facility] [place] [address] Monroe Hernandez M.D. [id number] MUCUS, URINE Rare Normal None Seen, Rare [facility] Comment on above: Order Comment: Micro scopic examination is performed on all urinalysis samples and only positive findings are reported. The test for blood on the chemical analytic portion of urinalysis may also be positive due to hemoglobinuria and myoglobinuria and if red blood cells are present they are quantified by microscopic examination. Performed By: #### 4 [id number] #### [facility] [place] [address] Monroe Hernandez M.D. [id number] NITRITE, URINE Negative Normal Negative [facility] Comment on above: Order Comment: Micro scopic examination is performed on all urinalysis samples and only positive findings are reported. The test for blood on the chemical analytic portion of urinalysis may also be positive due to hemoglobinuria and myoglobinuria and if red blood cells are present they are quantified by microscopic examination. Performed By: #### 4 [id number] #### [facility] [place] [id number] Monroe Hernandez M.D. [id number] pH (U) 5.5 [pH] Normal 5.0-7.0 [facility] Comment on above: Order Comment: Micro scopic examination is performed on all urinalysis samples and only positive findings are reported. The test for blood on the chemical analytic portion of urinalysis may also be positive due to hemoglobinuria and myoglobinuria and if red blood cells are present they are quantified by microscopic examination. Performed By: #### 4 [id number] #### [place] [address] Monroe Hernandez M.D. [id number] PROTEIN, URINE Negative Normal Negative [facility] Comment on above: Order Comment: Micro scopic examination is performed on all urinalysis samples and only positive findings are reported. The test for blood on the chemical analytic portion of urinalysis may also be positive due to hemoglobinuria and myoglobinuria and if red blood cells are present they are quantified by microscopic examination. Performed By: #### 4 [id number] #### [facility] [place] [address] Monroe Hernandez M.D. [id number] RBC LM.HPF (Urine sed) [#/Area] 1 /[HPF] Normal 0-3 [facility] Comment on above: Order Comment: Micro scopic examination is performed on all urinalysis samples and only positive findings are reported. The test for blood on the chemical analytic portion of urinalysis may also be positive due to hemoglobinuria and myoglobinuria and if red blood cells are present they are quantified by microscopic examination. Performed By: #### 4 [id number] #### [place] [address] Monroe Hernandez M.D. [id number] Specific gravity (U) [Rel density] 1.020 Normal 1.005-1.025 [facility] Comment on above: Order Comment: Micro scopic examination is performed on all urinalysis samples and only positive findings are reported. The test for blood on the chemical analytic portion of urinalysis may also be positive due to hemoglobinuria and myoglobinuria and if red blood cells are present they are quantified by microscopic examination. Performed By: #### 4 [id number] #### [facility] [address] [address] Monroe Hernandez M.D. [id number] UROBILINOGEN, URINE <2.0 Normal <2.0 [facility] Comment on above: Order Comment: Micro scopic examination is performed on all urinalysis samples and only positive findings are reported. The test for blood on the chemical analytic portion of urinalysis may also be positive due to hemoglobinuria and myoglobinuria and if red blood cells are present they are quantified by microscopic examination. Performed By: #### 4 [id number] #### [facility] [address] [place] [address] Monroe Hernandez M.D. [id number] WBC LM.HPF (Urine sed) [#/Area] 1 /[HPF] Normal 0-5 [facility] Comment on above: Order Comment: Micro scopic examination is performed on all urinalysis samples and only positive findings are reported. The test for blood on the chemical analytic portion of urinalysis may also be positive due to hemoglobinuria and myoglobinuria and if red blood cells are present they are quantified by microscopic examination. Performed By: #### 4 [id number] #### LAB [address] [place] [address] Monroe Hernandez M.D. [id number] XR CHEST PA/APon 04-08-2024 XR CHEST PA/AP EXAMINATION: XR CHEST PA/AP 04/08/2024 5:50 pm HISTORY: ORDERING SYSTEM PROVIDED HISTORY: dizziness/rib pain, TECHNOLOGIST PROVIDED HISTORY: Illness/Other Reason for exam: Dizziness Cancer History: [facility] Surgery, RadiationHistory: [facility] Encounter Type: Initial Additional signs and symptoms: None ORDERING SYSTEM PROVIDED DIAGNOSIS CODES: COMPARISON: None FINDINGS: No focal consolidations or pleural effusions. Cardiomediastinal silhouette is unremarkable. No acute osseous abnormality. IMPRESSION: No acute disease. Workstation ID: [id number] Dictated by: PORFIRIO CONWAY on SunApr 08, 2024 6:51:02 PM EDT Transcribed by: PORFIRIO CONWAY on SunApr 08, 2024 6:51:02 PM EDT Finalized by: PORFIRIO CONWAY on SunApr 08, 2024 6:51:02 PM EDT [facility] Comment on above: Order Comment: Injur y/Trauma or Illness?:Illness/Other How long have you had these symptoms (acute/chronic)?:Acute Reason for exam?:Dizziness History of cancer?:[facility] Surgeries, chemotherapy, or radiation?: Type of Exam?:Initial Additional signs and symptoms?:None CT Chest for screening DARRYL wilkinsonon 10-10-2023 1. No lung nodule or mass. 2. Emphysematous changes. 3. Atherosclerotic disease with coronary artery calcifications. ASSESSMENT CATEGORY: Lung-RADS Assessment Category 1 - Negative. Recommend continued annual low-dose screening CT in 12 months. Category S - Clinically or potentially significant non lung cancer related findings Lung-RADS Version 2022 Assessment Categories - for Screening CT Chest Only. Release date: Jul 2022 Category 0 - Incomplete Part of lungs cannot be evaluated Findings suggestive of an inflammatory or infectious process Category 1 - Negative - Continue annual screening No nodules Nodules with benign characteristics (complete, central, popcorn Ca++) or fat Category 2 - Benign appearance or behavior - Continue annual screening Perifissural nodule(s) < 10 mm at baseline or new with oval, lentiform or triangular shape Solid nodule(s): < 6 mm at baseline or new < 4 mm Part solid nodule(s): < 6 mm mean diameter at baseline Nonsolid nodule(s) (GGN): < 30 mm OR > 30 mm and unchanged or slowly growing Airway nodule in subsegmental branch Category 3 or 4 nodules unchanged for > 6 months Category 3 - Probably benign finding(s) - 6 month follow up Solid nodule(s): 6 to < 8 mm at baseline OR new 4 mm to < 6 mm Part solid nodule(s) 6 mm total diameter with solid component < 6 mm OR new < 6 mm total diameter Nonsolid nodule(s) (GGN) > 30 mm on baseline or new Atypical cyst Category 4a nodule unchanged for 3 months Category 4A - Suspicious - 3 month follow up or PET/CT when >8mm Solid nodule(s): 8 to < 15 mm at baseline OR growing < 8 mm OR new 6 to <8 mm Part solid nodule(s): > 6 mm with solid component > 6 mm to < 8 mm OR with a new or growing < 4 mm solid component Airway nodule - segmental, more proximal than baseline or new Atypical cyst with thick wall or multilocular or changed Category 4B - Suspicious - chest CT with or without contrast, PET/CT and/or tissue sampling depending on the *probability of malignancy and comorbidities. PET/CT may be used when there is a > 8 mm solid component. For new large nodules that develop on an annual repeat screening CT, a [address] may be recommended. Airway nodule growing Solid nodule(s): > 15 mm OR new or growing, and > 8 mm Part solid nodule(s) with: a solid component > 8 mm OR a new or growing > 4mm solid component Atypical cyst with growth Category 4X - Suspicious - (same work up as Category 4B) Category 3 or 4 nodules with additional features or imaging findings that increases the suspicion of malignancy - spiculation, rapid growth or associated lymph node enlargement Modifier to add to Category 0-4: Category S - Clinically or potentially significant non lung cancer related findings NOTES 1. Lung-RADS Category: Each exam should be coded 0-4 based on the nodule with the highest degree of suspicion. 2. Lung-RADS Management: The timing of follow-up imaging is from the date of the exam being interpreted. For example, 12-month screening LDCT for Lung-RADS 2 is from the date of the current exam. Also note that management of category 3 and 4A nodules follows a stepped approach based on follow-up stability or decrease in size. If nodules resolve on follow-up, reclassify according to the most concerning finding. 3. Practice Audit Definitions: A negative screen is defined as categories 1 and 2; a positive screen is defined as categories 3 and 4. A negative screen does not mean that an individual does not have lung cancer. 4. Nodule Measurement: To calculate nodule mean diameter, measure both the long and short axis to one decimal point in mm, and report mean nodule diameter to one decimal point. The long and short axis measurements may be in any plane to reflect the true size of the nodule. Volumes, if obtained, should be reported to the nearest whole number in mm3. 5. Size Thresholds: Apply to nodules at first detection and that enlarge, reaching a higher size category. When a nodule crosses a new size threshold for other Lung-RADS categories, even if not meeting the definition of growth, the nodule should be reclassified based on size and managed accordingly. 6. Growth: An increase in mean diameter size of > 1.5 mm (> 2 mm3) within a 12-month interval. 7. Repl-Kszcraa-Emv-Solid (Ground-Glass) Nodules: A ground-glass nodule (GGN) that demonstrates growth over multiple screening exams but does not meet the > 1.5 mm threshold increase in size for any 12-month interval may be classified as Lung-RADS 2 until the nodule meets findings criteria of another category, such as developing a solid component (then manage per part-solid nodule criteria). 8. Ozuh-Cvryaiu-Upupz or Part-Solid Nodules: A solid or part-solid nodule that demonstrates growth over multiple screening exams but does not meet the > 1.5 mm threshold increase in size for any 12-month interval is suspic (more content not included)... [employer] Patient Name: KAYE CUEVA : 1970 Exam Date/Time: 10/10/2023 08:37 Procedure: CT LUNG SCREENING LOW DOSE Ordering Provider: ACOSTA REBECCA Reason For Exam: Lung cancer screening, < 20 pk-yr smoking history (Age >= 50y) SCREENING CT CHEST WITHOUT CONTRAST: CLINICAL INDICATION: Screening for lung cancer. Personal history of nicotine dependence. Current smoker TECHNIQUE: Transaxial sequence through the chest from apices through the bases with low-dose technique with 1 mm reconstruction. Sagittal and coronal reconstructions included. Dose reduction was employed with automated exposure control. COMPARISON: None FINDINGS: Lungs: No parenchymal or pleural-based nodule. No consolidation or atelectasis. There are mild centrilobular and paraseptal emphysematous changes. Pleural fluid: None. Heart/Great vessels: Cardiac chambers are normal in size. Coronary artery and aorta atherosclerotic calcifications are noted. Mediastinum/Mena: Unremarkable on this noncontrast study. Chest wall: Normal. Upper abdomen: No abnormality throughout the visualized portions of liver. Visualized portions of the spleen are normal. Osseous structures: No abnormality. [facility] [employer] Radiology Study observation (narrative) [employer] CT Chest for screening WO co ntrastOrdered By: Bradley Villarreal on 10-10-2023 [employer] Work Phone: Vital Signs Date Time Vital Sign Value Performing Clinician Yusuf giordano 10-16-2023 08:33-0500 Diastolic blood pressure 78 mm[Hg] Denice Acosta ELECTRICIAN OUTSIDE - PROPULSION MOTOR AND GENERATOR REPAIRER Work Phone: [employer] 10-16-2023 08:33-0500 Systolic blood pressure 138 mm[Hg] Ednice Bridenthal ELECTRICIAN OUTSIDE - PROPULSION MOTOR AND GENERATOR REPAIRER Work Phone: [facility] 10-16-2023 07:35-0500 Body mass index (BMI) [Ratio] 20.24 kg/m2 Denice Bridenthal ELECTRICIAN OUTSIDE - PROPULSION MOTOR AND GENERATOR REPAIRER Work Phone: [facility] 10-16-2023 07:35-0500 Body temperature 98.6 [degF] Denice Bridenthal ELECTRICIAN OUTSIDE - PROPULSION MOTOR AND GENERATOR REPAIRER Work Phone: [facility] 10-16-2023 07:35-0500 Body weight 64.86 kg Denice Bridenthal ELECTRICIAN OUTSIDE - PROPULSION MOTOR AND GENERATOR REPAIRER Work Phone: [facility] 10-16-2023 07:35-0500 Heart rate 101 /min Denice Bridenthal ELECTRICIAN OUTSIDE - PROPULSION MOTOR AND GENERATOR REPAIRER Work Phone: [facility] 10-16-2023 07:35-0500 Respiratory rate 24 /min Denice Bridenthal ELECTRICIAN OUTSIDE - PROPULSION MOTOR AND GENERATOR REPAIRER Work Phone: [facility] 10-16-2023 07:35-0500 SaO2% (BldA) [Mass fraction] 97 % Denice Bridenthal ELECTRICIAN OUTSIDE - PROPULSION MOTOR AND GENERATOR REPAIRER Work Phone: [facility] 09-18-2023 09:46-0500 Body mass index (BMI) [Ratio] 19.4 kg/m2 Denice Bridenthal ELECTRICIAN OUTSIDE - PROPULSION MOTOR AND GENERATOR REPAIRER Work Phone: [facility] 09-18-2023 09:46-0500 Body temperature 97.7 [degF] Denice Bridenthal ELECTRICIAN OUTSIDE - PROPULSION MOTOR AND GENERATOR REPAIRER Work Phone: [facility] 09-18-2023 09:46-0500 Body weight 62.14 kg Denice Bridenthal ELECTRICIAN OUTSIDE - PROPULSION MOTOR AND GENERATOR REPAIRER Work Phone: [facility] 09-18-2023 09:46-0500 Diastolic blood pressure 70 mm[Hg] Denice Bridenthal ELECTRICIAN OUTSIDE - PROPULSION MOTOR AND GENERATOR REPAIRER Work Phone: [facility] 09-18-2023 09:46-0500 Heart rate 114 /min Denice Bridenthal ELECTRICIAN OUTSIDE - PROPULSION MOTOR AND GENERATOR REPAIRER Work Phone: [facility] 09-18-2023 09:46-0500 Respiratory rate 24 /min Denice Bridenthal ELECTRICIAN OUTSIDE - PROPULSION MOTOR AND GENERATOR REPAIRER Work Phone: [facility] 09-18-2023 09:46-0500 SaO2% (BldA) [Mass fraction] 98 % Denice Bridenthal ELECTRICIAN OUTSIDE - PROPULSION MOTOR AND GENERATOR REPAIRER Work Phone: [facility] 09-18-2023 09:46-0500 Systolic blood pressure 113 mm[Hg] Denice Bridenthal ELECTRICIAN OUTSIDE - PROPULSION MOTOR AND GENERATOR REPAIRER Work Phone: [facility] 08-28-2023 07:53-0500 Body mass index (BMI) [Ratio] 20.81 kg/m2 Denice Bridenthal ELECTRICIAN OUTSIDE - PROPULSION MOTOR AND GENERATOR REPAIRER Work Phone: [facility] 08-28-2023 07:53-0500 Body temperature 98.01 [degF] Denice Bridenthal ELECTRICIAN OUTSIDE - PROPULSION MOTOR AND GENERATOR REPAIRER Work Phone: [facility] 08-28-2023 07:53-0500 Body weight 66.68 kg Denice Bridenthal ELECTRICIAN OUTSIDE - PROPULSION MOTOR AND GENERATOR REPAIRER Work Phone: [facility] 08-28-2023 07:53-0500 Diastolic blood pressure 88 mm[Hg] Denice Bridenthal ELECTRICIAN OUTSIDE - PROPULSION MOTOR AND GENERATOR REPAIRER Work Phone: [facility] 08-28-2023 07:53-0500 Heart rate 105 /min Denice Bridenthal ELECTRICIAN OUTSIDE - PROPULSION MOTOR AND GENERATOR REPAIRER Work Phone: [facility] 08-28-2023 07:53-0500 Respiratory rate 26 /min Denice Bridenthal ELECTRICIAN OUTSIDE - PROPULSION MOTOR AND GENERATOR REPAIRER Work Phone: [facility] 08-28-2023 07:53-0500 SaO2% (BldA) [Mass fraction] 98 % Denice Bridenthal ELECTRICIAN OUTSIDE - PROPULSION MOTOR AND GENERATOR REPAIRER Work Phone: [facility] 08-28-2023 07:53-0500 Systolic blood pressure 130 mm[Hg] Denice Chienthal ELECTRICIAN OUTSIDE - PROPULSION MOTOR AND GENERATOR REPAIRER Work Phone: [facility] 08-20-2023 15:05-0500 Body mass index (BMI) [Ratio] 20.67 kg/m2 Denice Bridenthal ELECTRICIAN OUTSIDE - PROPULSION MOTOR AND GENERATOR REPAIRER Work Phone: [facility] 08-20-2023 15:05-0500 Body temperature 98.2 [degF] Denice Bridenthal ELECTRICIAN OUTSIDE - PROPULSION MOTOR AND GENERATOR REPAIRER Work Phone: [facility] 08-20-2023 15:05-0500 Body weight 66.22 kg Denice Bridenthal ELECTRICIAN OUTSIDE - PROPULSION MOTOR AND GENERATOR REPAIRER Work Phone: [facility] 08-20-2023 15:05-0500 Diastolic blood pressure 87 mm[Hg] Denice Bridenthal ELECTRICIAN OUTSIDE - PROPULSION MOTOR AND GENERATOR REPAIRER Work Phone: [facility] 08-20-2023 15:05-0500 Heart rate 103 /min Denice Bridenthal ELECTRICIAN OUTSIDE - PROPULSION MOTOR AND GENERATOR REPAIRER Work Phone: [facility] 08-20-2023 15:05-0500 Respiratory rate 26 /min Denice Bridenthal ELECTRICIAN OUTSIDE - PROPULSION MOTOR AND GENERATOR REPAIRER Work Phone: [facility] 08-20-2023 15:05-0500 SaO2% (BldA) [Mass fraction] 98 % Denice Bridenthal ELECTRICIAN OUTSIDE - PROPULSION MOTOR AND GENERATOR REPAIRER Work Phone: [facility] 08-20-2023 15:05-0500 Systolic blood pressure 157 mm[Hg] Denice Bridenthal ELECTRICIAN OUTSIDE - PROPULSION MOTOR AND GENERATOR REPAIRER Work Phone: [facility] 07-31-2023 11:22-0500 Body height 179 cm Denice Bridenthal ELECTRICIAN OUTSIDE - PROPULSION MOTOR AND GENERATOR REPAIRER Work Phone: [facility] 07-31-2023 11:22-0500 Body mass index (BMI) [Ratio] 20.67 kg/m2 Denice Bridenthal ELECTRICIAN OUTSIDE - PROPULSION MOTOR AND GENERATOR REPAIRER Work Phone: [facility] 07-31-2023 11:22-0500 Body temperature 99.61 [degF] Denice Bridenthal ELECTRICIAN OUTSIDE - PROPULSION MOTOR AND GENERATOR REPAIRER Work Phone: [facility] 07-31-2023 11:22-0500 Body weight 66.22 kg Denice Bridenthal ELECTRICIAN OUTSIDE - PROPULSION MOTOR AND GENERATOR REPAIRER Work Phone: [facility] 07-31-2023 11:22-0500 Diastolic blood pressure 83 mm[Hg] Denice Bridenthal ELECTRICIAN OUTSIDE - PROPULSION MOTOR AND GENERATOR REPAIRER Work Phone: [facility] 07-31-2023 11:22-0500 Heart rate 101 /min Denice Bridenthal ELECTRICIAN OUTSIDE - PROPULSION MOTOR AND GENERATOR REPAIRER Work Phone: [facility] 07-31-2023 11:22-0500 Respiratory rate 26 /min Denice Bridenthal ELECTRICIAN OUTSIDE - PROPULSION MOTOR AND GENERATOR REPAIRER Work Phone: [facility] 07-31-2023 11:22-0500 SaO2% (BldA) [Mass fraction] 97 % Denice Bridenthal ELECTRICIAN OUTSIDE - PROPULSION MOTOR AND GENERATOR REPAIRER Work Phone: [facility] 07-31-2023 11:22-0500 Systolic blood pressure 135 mm[Hg] Denice Bridenthal ELECTRICIAN OUTSIDE - PROPULSION MOTOR AND GENERATOR REPAIRER Work Phone: [facility] Encounters Encounter Date Encounter Type Care Provider Facility Start: 11-13-2024 End: 12-24-2024 Telephone encounter Matty Tyler MD Work Phone: [facility] Comment on above: Other (Annual Lung S creening Reminder) Start: 10-22-2024 ambulatory Alfie Puneet Facility:[facility] Start: 10-22-2024 End: 10-22-2024 ambulatory [facility] [facility] Facility:[facility] Start: 10-15-2024 ambulatory [facility] Pune[facility] Facility:[facility] Start: 10-15-2024 End: 10-15-2024 ambulatory [employer] Puneet Facility:[facility] Start: 10-08-2024 End: 10-08-2024 ambulatory [facility] Puneet Facility:[facility] Start: 07-29-2024 End: 07-29-2024 ambulatory NEIL PENCE Facility:[facility] Start: 04-08-2024 End: 04-08-2024 Emergency department patient visit CHARLIE NietoAlison DEAN [facility] Start: 11-08-2023 End: 11-08-2023 ambulatory Denice Acosta ELECTRICIAN OUTSIDE - PROPULSION MOTOR AND GENERATOR REPAIRER Work Phone: [facility] Comment on above: Acute right-sided lo w back pain with right-sided sciatica (Primary Dx) Start: 11-06-2023 End: 11-06-2023 Follow-up encounter Deniceriaz Olivieral ELECTRICIAN OUTSIDE - PROPULSION MOTOR AND GENERATOR REPAIRER Work Phone: [facility] Comment on above: Acute right-sided lo w back pain with right-sided sciatica (Primary Dx) Start: 10-29-2023 End: 10-29-2023 Follow-up encounter Deniceriaz Olivieral ELECTRICIAN OUTSIDE - PROPULSION MOTOR AND GENERATOR REPAIRER Work Phone: [facility] Comment on above: Acute right-sided lo w back pain with right-sided sciatica (Primary Dx) Start: 10-22-2023 End: 10-22-2023 Follow-up encounter Deniceriaz Olivieral ELECTRICIAN OUTSIDE - PROPULSION MOTOR AND GENERATOR REPAIRER Work Phone: [facility] Comment on above: Acute right-sided lo w back pain with right-sided sciatica (Primary Dx) Start: 10-16-2023 End: 10-16-2023 Office outpatient visit 25 minutes Deniceriaz Olivieral ELECTRICIAN OUTSIDE - PROPULSION MOTOR AND GENERATOR REPAIRER Work Phone: [facility] Comment on above: Back pain with right -sided radiculopathy (Primary Dx); Tobacco use; Atherosclerosis; Other emphysema (HCC) Start: 10-15-2023 End: 10-15-2023 Follow-up encounter Deniceriaz Acosta ELECTRICIAN OUTSIDE - PROPULSION MOTOR AND GENERATOR REPAIRER Work Phone: [facility] Comment on above: Acute right-sided lo w back pain with right-sided sciatica (Primary Dx) Start: 10-10-2023 End: 10-10-2023 Subsequent hospital visit by physician Denice Acosta ELECTRICIAN OUTSIDE - PROPULSION MOTOR AND GENERATOR REPAIRER Work Phone: [facility] Comment on above: Tobacco use Start: 10-09-2023 End: 10-09-2023 ambulatory Denice Acosta ELECTRICIAN OUTSIDE - PROPULSION MOTOR AND GENERATOR REPAIRER Work Phone: [facility] Comment on above: Acute right-sided lo w back pain with right-sided sciatica Start: 09-18-2023 End: 09-18-2023 Office outpatient visit 15 minutes Denice Acosta ELECTRICIAN OUTSIDE - PROPULSION MOTOR AND GENERATOR REPAIRER Work Phone: [facility] Comment on above: Acute right-sided lo w back pain with right-sided sciatica (Primary Dx) Start: 09-13-2023 Telephone encounter Matty Watkins MD Work Phone: [facility] Comment on above: Forms/questionnaires Start: 09-05-2023 Telephone encounter Matty Watkins MD Work Phone: [facility] Comment on above: Prior Authorization (Already had a note that the PA is done for low dose CT scan , see Referrals in chart, /) Start: 08-28-2023 End: 08-28-2023 Patient encounter procedure Denice Acosta ELECTRICIAN OUTSIDE - PROPULSION MOTOR AND GENERATOR REPAIRER Work Phone: [facility] [employer] Work Phone: Start: 08-28-2023 End: 08-28-2023 Periodic preventive med est patient 40-64yrs Denice Acosta ELECTRICIAN OUTSIDE - PROPULSION MOTOR AND GENERATOR REPAIRER Work Phone: [facility] Comment on above: Annual physical exam (Primary Dx); Screening for cholesterol level; Screening for prostate cancer; Screening for deficiency anemia; Elevated blood pressure reading; Screening for thyroid disorder; Tobacco use; Low back strain, subsequent encounter; Spasm of muscle of lower back Start: 08-23-2023 End: 08-23-2023 Subsequent hospital visit by physician Denice Acosta APRN - PROPULSION MOTOR AND GENERATOR REPAIRER Work Phone: [facility] Radiology Comment on above: Low back strain, sub sequent encounter Start: 08-20-2023 End: 08-20-2023 Office outpatient visit 15 minutes Denice Mirelesanthony ELECTRICIAN OUTSIDE - PROPULSION MOTOR AND GENERATOR REPAIRER Work Phone: [facility] Comment on above: Low back strain, sub sequent encounter (Primary Dx); Elevated blood pressure reading Start: 07-31-2023 End: 07-31-2023 Office outpatient new 30 minutes Denice Mirelesanthony ELECTRICIAN OUTSIDE - PROPULSION MOTOR AND GENERATOR REPAIRER Work Phone: [facility] Comment on above: Spasm of muscle of l ower back (Primary Dx) Start: 07-26-2023 ambulatory Sharyn Ovalles RN [facility] C linical Communication Start: 07-26-2023 Patient encounter procedure Sharyn Ovalles RN [facility] Clinical Communication Procedures Date Procedure Procedure Detail Performing Clinician Start: 10-10-2023 CT Chest for screeni ng WO contrast Denice Mirelesanthony ELECTRICIAN OUTSIDE - PROPULSION MOTOR AND GENERATOR REPAIRER Work Phone: Start: 08-28-2023 Lipid 1996 panel - S yasemin or Plasma Matty Tyler MD Work Phone: Start: 07-31-2023 Adult depression screening assessment Denice [id number] ELECTRICIAN OUTSIDE - PROPULSION MOTOR AND GENERATOR REPAIRER Work Phone: Plan of Treatment Date Care Activity Detail Author Start: 2045 RSV Immunization for Adults (1 - 1-dose 75+ series) RSV Immunization for Adults (1 - 1-dose 75+ series) [facility] Start: 2030 RSV Immunization age d 60 or older (1 - 1-dose 60+ series) RSV Immunization aged 60 or older (1 - 1-dose 60+ series) [facility] Start: 08-28-2028 Lipid panel Lipid Panel [facility] Start: 05-25-2025 Influenza vaccination Influenz a Vaccine (Season Ended) [facility] Start: 10-10-2024 Screening for malign ant neoplasm of lung Lung Cancer Screening [facility] Start: 08-28-2024 COVID-19 Vaccine ( season) COVID-19 Vaccine ( season) [facility] Comment on above: Postponed from 05/25 (Patient Refused) Start: 08-28-2024 DTaP/Tdap/Td Vaccine s (1 - Tdap) DTaP/Tdap/Td Vaccines (1 - Tdap) [facility] Comment on above: Postponed from 07/09 (Patient Refused) Start: 08-28-2024 Hepatitis B Vaccines (1 of 3 - 3-dose series) Hepatitis B Vaccines (1 of 3 - 3-dose series) [facility] Comment on above: Postponed from 07/09 (Patient Refused) Start: 08-28-2024 Hepatitis C screening Hepatitis C Sc reening [facility] Comment on above: Postponed from 07/09 (Patient Refused) Start: 08-28-2024 HIV screening HIV Screening [facility] Comment on above: Postponed from 07/09 (Patient Refused) Start: 08-28-2024 Pneumococcal Vaccine : Pediatrics (0 to 5 Years) and At-Risk Patients (6 to 64 Years) (1 - PCV) Pneumococcal Vaccine: Pediatrics (0 to 5 Years) and At-Risk Patients (6 to 64 Years) (1 - PCV) [facility] Comment on above: Postponed from 07/09 (Patient Refused) Start: 08-28-2024 Pneumococcal Vaccine : Pediatrics (0 to 5 Years) and At-Risk Patients (6 to 64 Years) (1 of 2 - PCV) Pneumococcal Vaccine: Pediatrics (0 to 5 Years) and At-Risk Patients (6 to 64 Years) (1 of 2 - PCV) [facility] Comment on above: Postponed from 07/09 (Patient Refused) Start: 08-28-2024 Zoster Vaccines (1 of 2) Zoster Vacc tony (1 of 2) [facility] Comment on above: Postponed from 07/09 (Patient Refused) Start: 08-28-2024 End: 08-28-2024 Patient encounter procedure 08/28/2024 7:30 AM EST Office Visit [facility] [address] [place] [address] [place] [address] [facility] [place] [address] [facility] Start: 07-31-2024 Depression Screening Depression Scre ening [facility] Start: 05-25-2024 COVID-19 Vaccine ( season) COVID-19 Vaccine ( season) [facility] Start: 03-23-2024 Influenza vaccination Influenza Vacc ine (#1) [facility] Comment on above: Postponed from 05/25 (Patient Refused) Start: 11-19-2023 End: 11-19-2023 Patient encounter procedure 11/19/2023 8:20 AM EST Office Visit [facility] [address] [place] [address] [place] [address] Denice Acosta, ELECTRICIAN OUTSIDE - PROPULSION MOTOR AND GENERATOR REPAIRER [address] [place] [address] [place] [address] [facility] Start: 11-08-2023 End: 11-08-2023 ambulatory 11/08/2023 10:30 AM EST Evaluation [facility] at [facility] [address] [place] [phone] Denice Acosta, ELECTRICIAN OUTSIDE - PROPULSION MOTOR AND GENERATOR REPAIRER [address] [place] [address] [place] [address] Yessy Hussein, BABAK [facility] Start: 11-05-2023 End: 11-05-2023 Follow-up encounter 11/05/2023 5:30 PM EST Follow-Up [facility] at [facility] [address] [place] [phone] Yessy Hussein, PT [facility] Start: 10-30-2023 End: 10-30-2023 Patient encounter procedure 10/30/2023 9:20 AM EST Office Visit [facility] [address] [place] [address] [place] [address] Denice Acosta, ELECTRICIAN OUTSIDE - PROPULSION MOTOR AND GENERATOR REPAIRER [address] [place] [address] [place] [address] [facility] Start: 10-29-2023 End: 10-29-2023 Follow-up encounter 10/29/2023 3:30 PM EST Follow-Up [facility] at [address] [place] [phone] Noel Souza PTA [facility] Start: 10-22-2023 End: 10-22-2023 Follow-up encounter 10/22/2023 3:00 PM EST Follow[facility]Up [facility] at [address] [place] [phone] Yessy Hussein, PT [facility] Start: 10-16-2023 End: 10-16-2023 Patient encounter procedure 10/16/2023 7:40 AM EST Office Visit [facility] [address] [place] [address] [place] [address] Denice Acosta, ELECTRICIAN OUTSIDE - PROPULSION MOTOR AND GENERATOR REPAIRER [address] [place] [address] [place] [address] [facility] Start: 10-15-2023 End: 10-15-2023 Follow-up encounter 10/15/2023 1:30 PM EST Follow[facility]Up [facility] at [address] [place] [phone] Denice Acosta, ELECTRICIAN OUTSIDE - PROPULSION MOTOR AND GENERATOR REPAIRER [address] [place] [address] [place] [address] Yessy Hussein, PT [facility] Start: 10-10-2023 End: 10-10-2023 Patient encounter procedure 10/10/2023 8:15 AM EST Appointment [facility] [address] [place] [phone] Denice Acosta, ELECTRICIAN OUTSIDE - PROPULSION MOTOR AND GENERATOR REPAIRER [address] [place] [address] [place] [address] [facility] [address] Start: 10-10-2023 Subsequent hospital visit by physician 10/10/2023 8:15 AM EST Hospital Encounter [facility] [address] [place] [phone] Denice Acosta, ELECTRICIAN OUTSIDE - PROPULSION MOTOR AND GENERATOR REPAIRER [address] [place] [address] [place] [address] [facility] [address] Start: 08-28-2023 End: 08-27-2024 CBC panel - Blood by Automated count CBC Lab Routine Screening for deficiency anemia Expected: 08/28/2023 (Approximate), Expires: 08/27/2024 [facility] [employer] Comment on above: Expected: 08/28/2023 (Approximate), Expires: 08/27/2024 Start: 08-28-2023 End: 08-27-2024 Comprehensive metabolic 1998 panel - Serum or Plasma Comprehensive metabolic panel Lab Routine Elevated blood pressure reading Expected: 08/28/2023 (Approximate), Expires: 08/27/2024 [facility] [employer] Comment on above: Expected: 08/28/2023 (Approximate), Expires: 08/27/2024 Start: 08-28-2023 End: 08-28-2024 CT Chest for screening WO contrast CT lung screening low dose Imaging Routine Tobacco use Expected: 08/28/2023, Expires: 08/28/2024 [facility] [employer] Comment on above: Expected: 08/28/2023 , Expires: 08/28/2024 Start: 08-28-2023 End: 08-27-2024 Lipid 1996 panel - Serum or Plasma Lipid panel Lab Routine Screening for cholesterol level Expected: 08/28/2023 (Approximate), Expires: 08/27/2024 [facility] Work Phone: Comment on above: Expected: 08/28/2023 (Approximate), Expires: 08/27/2024 Start: 08-28-2023 End: 08-27-2024 PSA Total (Screening) PSA Total (Screening) Lab Routine Screening for prostate cancer Expected: 08/28/2023 (Approximate), Expires: 08/27/2024 [facility] Comment on above: Expected: 08/28/2023 (Approximate), Expires: 08/27/2024 Start: 08-28-2023 End: 08-28-2024 Thyrotropin [Units/volume] in Serum or Plasma TSH Lab Routine Screening for thyroid disorder Expected: 08/28/2023 (Approximate), Expires: 08/28/2024 [facility] Comment on above: Expected: 08/28/2023 (Approximate), Expires: 08/28/2024 Start: 08-28-2023 End: 08-28-2023 Patient encounter procedure 08/28/2023 8:00 AM EST Office Visit [facility] [address] [place] [address] [place] [address] Bridenthal, Denice, ELECTRICIAN OUTSIDE - PROPULSION MOTOR AND GENERATOR REPAIRER [address] [place] [address] [place] [address] [facility] Start: 08-27-2023 End: 08-27-2023 Patient encounter procedure 08/27/2023 8:00 AM EST Office Visit [facility] [address] [place] [address] [place] [address] Bridenthal, Denice, ELECTRICIAN OUTSIDE - PROPULSION MOTOR AND GENERATOR REPAIRER [address] [place] [address] [place] [address] [facility] Start: 08-20-2023 End: 08-20-2024 XR Lumbar spine 2 or 3 Views XR lumbar spine 2 or 3 views Imaging Routine Low back strain, subsequent encounter Expected: 08/20/2023, Expires: 08/20/2024 [facility] Work Phone: Comment on above: Expected: 08/20/2023 , Expires: 08/20/2024 Start: 07-31-2023 End: 07-31-2023 Patient encounter procedure 07/31/2023 11:20 AM EST Office Visit [facility] [address] [place] [address] [place] [address] Bridenthal, Denice, ELECTRICIAN OUTSIDE - PROPULSION MOTOR AND GENERATOR REPAIRER [address] [facility] [place] [address] [facility] Start: 05-25-2023 COVID-19 Vaccine ( season) COVID-19 Vaccine ( season) [facility] Start: 05-25-2023 Influenza vaccination Influenza Vacc ine (#1) [facility] Start: 03-27-2021 COVID-19 Vaccine (3 - Pfizer series) COVID-19 Vaccine (3 - Pfizer series) [facility] Start: 2020 Screening for malign ant neoplasm of lung Lung Cancer Screening [facility] Start: 2020 Zoster Vaccines (1 of 2) Zoster Vacc tony (1 of 2) [facility] Start: 1989 DTaP/Tdap/Td Vaccine s (1 - Tdap) DTaP/Tdap/Td Vaccines (1 - Tdap) [facility] Start: 1989 Hepatitis B Vaccines (1 of 3 - 19+ 3-dose series) Hepatitis B Vaccines (1 of 3 - 19+ 3-dose series) [facility] Start: 1989 Pneumococcal Vaccine : 50+ Years (1 of 2 - PCV) Pneumococcal Vaccine: 50+ Years (1 of 2 - PCV) [facility] Start: 1988 Hepatitis C screening Hepatitis C Sc reening [facility] Start: 1982 Depression Screening Depression Scre ening [facility] Start: 1976 Pneumococcal Vaccine : Pediatrics (0 to 5 Years) and At-Risk Patients (6 to 64 Years) (1 - PCV) Pneumococcal Vaccine: Pediatrics (0 to 5 Years) and At-Risk Patients (6 to 64 Years) (1 - PCV) [facility] Start: 1971 MMR Vaccines (1 of 1 - Standard series) MMR Vaccines (1 of 1 - Standard series) [facility] Start: 1970 Hepatitis B Vaccines (1 of 3 - 3-dose series) Hepatitis B Vaccines (1 of 3 - 3-dose series) [facility] Start: 1970 HIV screening HIV Screening [facility] Start: 1970 Lipid panel Lipid Panel [facility] Start: 1970 Screening for malign ant neoplasm of colon [facility] OUTSIDE PROCEDURE SCAN OUTSIDE P ROCEDURE SCAN Procedures Ordered: 08/23/2023 [facility] Comment on above: Ordered: 08/23/2023 OUTSIDE PROCEDURE SCAN OUTSIDE P ROCEDURE SCAN Procedures Ordered: 10/09/2023 [facility] Comment on above: Ordered: 10/09/2023 End: 08-23-2023 XR Lumbar spine 2 or 3 Views [facility] Work Phone: Comment on above: Once for 1 Occurrenc es starting 08/23/2023 until 08/23/2023 Payers Date Payer Category Payer Unknown [id number] 2024 Self-pay 2024 Unknown [id number] 2022 Tay trejo [facility] [place] [facility] [facility] [id number] 2022 Unknown ED MED[employer] [id number] 2022-Present [address] [place] [id number] Commercial [id number] 2022 Unknown [id number] 1970 Unknown [id number] Unknown [id number] Unknown [id number] Unknown [id number] Unknown [id number] Unknown [id number] Unknown 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 [facility] Start: 1970 Sex Assigned At Not on file [facility] Start: 07-31-2023 End: 08-03-2023 Gender identity Not on file [facility] Start: 07-31-2023 Tobacco smoking status NCIS Smokes t obacco daily [facility] History of tobacco use Cigarette Smoker [facility] Start: 07-31-2023 End: 08-03-2023 Cigarettes smoked current (pack per day) - Reported 1 [facility] Start: 07-31-2023 Tobacco use and exposure Smokeless t obacco non-user [facility] Start: 07-31-2023 End: 11-19-2023 Alcohol intake Ex-drinker (finding) [facility] How hard is it for y ou to pay for the very basics like food, housing, medical care, and heating Not hard at all [facility] (I/We) worried [facility] (my/our) food would run out before (I/we) got money to buy more. Never true [facility] In the past 12 month s, was there a time when you were not able to pay the mortgage or rent on time? No [facility] Start: 04-24-2022 Sex Male (finding) [facility] Clinical Notes 04-22-2022 to 11-20-2024 Telephone Encounter - Rahel Rasmussen MA - 11/20/2024 8:29 AM ESTTelephone Encounter - Rahel Rasmussen MA - 11/20/2024 8:29 AM ESTTelephone Encounter - Rahel Rasmussen MA - 11/19/2024 9:55 AM ESTAttachments Note Date & Type Note Facility 11-20-2024 Telephone encount er Note Left a message to return call. [facility] 11-20-2024 Miscellaneous Notes Formattin g of this note might be different from the original. Left a message to return call. Matty Tyler MD4 hours ago (5:35 AM) Can we contact Kaye and see if he is agreeable to being scheduled for a screening lung CT scan? Left a message to return call. Matty Tyler MD4 hours ago (5:35 AM) Can we contact Kaye and see if he is agreeable to being scheduled for a screening lung CT scan? Left a message to return call. Can we contact Kaye and see if he is agreeable to being scheduled for a screening lung CT scan? This patient has had a prior lung screening CT scan at [facility]. According to our records, he/she is now due for an annual lung screening CT scan. Please evaluate and order this annual screening if your patient still meets lung screening criteria. documented in this encounter [facility] 11-19-2024 Telephone encount er Note Matty Tlyer MD4 hours ago (5:35 AM) Can we contact Kaye and see if he is agreeable to being scheduled for a screening lung CT scan? Left a message to return call. [facility] 11-18-2024 Telephone encount er Note Matty Tyler MD4 hours ago (5:35 AM) Can we contact Kaye and see if he is agreeable to being scheduled for a screening lung CT scan? Left a message to return call. [employer] 11-18-2024 Telephone encount er Note Can we contact Kaye and see if he is agreeable to being scheduled for a screening lung CT scan? [employer] Work Phone: 11-13-2024 Telephone encount er Note This patient has had a prior lung screening CT scan at [facility]. According to our records, he/she is now due for an annual lung screening CT scan. Please evaluate and order this annual screening if your patient still meets lung screening criteria. [facility] 11-08-2023 History of Presen t illness Narrative Images from the original note were not included. [facility] TH[facility]AP[facility] AT [address] [place] [address] Dept: [phone] Dept PHYSICAL THERAPY RE-EVALUATION Patient Name: Kaye Cueva : 1970 Date of Service: 11/08/2023 Referring Provider: Denice Acosta AP* Visit #: 6 Diagnosis: Acute right-sided low back pain with right-sided sciatica Reason for referral/Mechanism of injury: Pt put carpet scrubber into vehicle and upon standing felt twinge in L low back in mid- Jul 2023. The next week he spent the other day on feet- prepping, cooking, serving. Upon waking the next day he had shooting pain in R back that shot down R legs. He was getting better with prednisone and was able to work (did not lift heavy). Pain is constant and sharp now and he is unable to work at this time d/t pain. Pt arrives using straight cane which he normally does not use. Patient Preferences: Kaye Precautions/Red Flags: None Subjective General Comments: Pt reports pain is now bearable and has been improving greatly since eval. He does not use cane at home and is only using when in the community. Improved ability to complete with minimal to no pain sitting, walking, ADLs, household duties, stair negotiation, lifting. He still has pain with standing >20 mins such as when doing dishes. Pain: Current: 10 Best: 10 Worst: 01/31 Outcome Measures Oswestry Low Back Disability: = 62% > = 12% Objective BACK Observation: Pt changes positions frequently > able to stay in one place more Gait: with straight cane- antalgic, leans against [place] > infrequent use of cane with improved upright posture and less antalgia Date Recorded: 10/09/2023 >11/08 Trunk AROM Percentage (%) Flexion (flex) 50* UE needed to stand up again, RLE numb >50 Extension (ext) 0* RLE numb >75 Right side bending (SBR) seated 100 Left side bending (SBL) seated 100 Right rotation (rotR) seated 75* >100 Left rotation (rotL) seated 100 *= pain in affected area Date 10/09/2023 >15 MMT Right Left Hip Flexion Unable to assess d/t pain > 5/5 5/5 Hip Abduction hooklying 4-/5* > 5/5 4/5 > 5/5 Hip Adduction 4+/5 >4+/5 4+/5 >4+/5 Hip Extension At least 3/5 >5/5 NT >4+/5 Knee Extension 5/5 5/5 Knee Flexion 5/5 5/5 Ankle Dorsiflexion (DF) 5/5 5/5 Ankle Plantarflexion (PF) 5/5 5/5 *= pain in affected area Bridge: 25 % ROM, UE support, mild instability observed d/t core and glute weakness, P! >75% with pain Lower Extremity Flexibility Date 10/09/2023 >215 R L Hamstrings Unable to assess d/t pain > severe restriction Difficulty to determine d/t R LBP > moderate restriction Piriformis Unable to assess d/t pain > no concern mild restriction > no concern Assessment Pt progressing well through POC addressing LBP with radicular symptoms since eval 10/09/23. Both land and aquatic PT have been trialed during this POC with good results for both. He demos improved LE strength, core strength, tolerance to activity, lumbopelvic flexibility, and lumbar ROM. This has allowed him to return to work on light duty as well as complete sitting, walking, ADLs, household duties, stair negotiation, lifting with minimal pain. He does still have some pain with prolonged standing therefore HEP updated today. Pt instructed to cont HEP daily at this time. Pt is being discharged at this time as they are IND with HEP and have met/ partially met all goals. Instructed to continue with HEP at this time. Pt with understanding and agreement. Goals Active General/Ortho Pt will be IND and compliant with HEP for participation throughout POC. (Completed) Start: 10/09/23 Expected End: 11/18/23 Resolved: 11/08/23 Pt will demo trunk AROM to at least 75% flex and ext for work duties. (Progressing) Start: 10/09/23 Expected End: 11/18/23 Patient will increase strength in BLE ot 5/5 MMT to be able to negotiate stairs and walk. (Progressing) Start: 10/09/23 Expected End: 11/18/23 Pt will be able to tolerate a 30 min session without rest breaks for ability to tolerate prolonged positioning. (Completed) Start: 10/09/23 Expected End: 11/18/23 Resolved: 11/08/23 Pt will score 52 % or lower on the modified KAL to demo improved quality of life. (Completed) Start: 10/09/23 Expected End: 11/18/23 Resolved: 11/08/23 Plan Pt will be discharged at this time. Pt will need a new PT script to return. Risks and benefits were discussed with the patient and/or family, and the patient and/or family participated with the plan of care and agrees. Treatment Therapeutic Exercise # of Activities: 3 Therapeutic Exercise Activity 1: Recheck Activity 1 Comment: Recheck objective measures, review HEP, discuss POC Therapeutic Exercise Activity 2: Stretches Activity 2 Comment: Seated piriformis x30 sec B ; Seated HS stretch x45 sec B Therapeutic Exercise Acitivity 3: Core strength/ stability Activity 3 Comment: Seated TA november x10 ea Pt declined additional treatment as he completed HEP this morning. Time Entry Total Treatment Time Start Time: 1009 Stop Time: 1025 Time Calculation (min): 16 min PT Therapeutic Procedures Time Entry Therapeutic Exercise Time Entry: 16 Yessy Hussein, PT documented in this encounter [facility] 11-06-2023 History of Presen t illness Narrative Images from the original note were not included. [place] [facility] AT [place] [address] [place] [address] Dept: [phone] Dept PHYSICAL THERAPY TREATMENT Patient Name: Kaye Cueva : 1970 Date of Service: 11/06/2023 Referring Provider: Denice Acosta AP* Visit #: 5 Diagnosis: Acute right-sided low back pain with right-sided sciatica Reason for referral/Mechanism of injury: Pt put carpet scrubber into vehicle and upon standing felt twinge in L low back in mid- Jul 2023. The next week he spent the other day on feet- prepping, cooking, serving. Upon waking the next day he had shooting pain in R back that shot down R legs. He was getting better with prednisone and was able to work (did not lift heavy). Pain is constant and sharp now and he is unable to work at this time d/t pain. Pt arrives using straight cane which he normally does not use. Patient Preferences: Kaye Precautions/Red Flags: None Subjective Pt states that he's had better days, and worse days. Rates pain as 3/10 on this date. Compliance with HEP: Yes Objective Objective measurements not taken today. Treatment Aquatic Therapy Exercises performed?: Yes Forward walking: See aquatic flowsheet Assessment Skilled physical therapy interventions utilized to improve patient s impairments and work towards established goals. Patient response to treatment: Focused aquatic therapy on core and LE strength on this date, pt had increased pace w/ exercises but still noted significant discomfort w/ all activities performed including additions of core board exercises. Ended session w/ HS and trunk extension stretches. Pt reported feeling more painful post session. Patient will benefit from continued physical therapy to continue progress towards goals and benefit QOL The rationale for today s treatment was explained to the patient. Verbal cues were provided for correct form with all exercises. Advised patient to continue with Home Exercise Program (HEP). Goals General/Ortho Pt will be IND and compliant with HEP for participation throughout POC. (Progressing) Start: 10/09/23 Expected End: 11/18/23 Pt will demo trunk AROM to at least 75% flex and ext for work duties. (Progressing) Start: 10/09/23 Expected End: 11/18/23 Patient will increase strength in BLE ot 5/5 MMT to be able to negotiate stairs and walk. (Progressing) Start: 10/09/23 Expected End: 11/18/23 Pt will be able to tolerate a 30 min session without rest breaks for ability to tolerate prolonged positioning. (Progressing) Start: 10/09/23 Expected End: 11/18/23 Pt will score 52 % or lower on the modified KAL to demo improved quality of life. (Progressing) Start: 10/09/23 Expected End: 11/18/23 Plan Plan for next session: Reassess pt Time Entry Total Treatment Time Start Time: 1531 Stop Time: 1554 Time Calculation (min): 23 min PT Therapeutic Procedures Time Entry Aquatic Therapy Time Entry: 23 Noel Souza PTA documented in this encounter [facility] 10-29-2023 History of Presen t illness Narrative Images from the original note were not included. S[facility]INE [place] [facility] AT [address] [place] [address] Dept: [phone] Dept PHYSICAL THERAPY TREATMENT Patient Name: Kaye Cueva : 1970 Date of Service: 10/29/2023 Referring Provider: Denice Acosta AP* Visit #: 4 Diagnosis: Acute right-sided low back pain with right-sided sciatica Reason for referral/Mechanism of injury: Pt put carpet scrubber into vehicle and upon standing felt twinge in L low back in mid- Jul 2023. The next week he spent the other day on feet- prepping, cooking, serving. Upon waking the next day he had shooting pain in R back that shot down R legs. He was getting better with prednisone and was able to work (did not lift heavy). Pain is constant and sharp now and he is unable to work at this time d/t pain. Pt arrives using straight cane which he normally does not use. Patient Preferences: Kaye Precautions/Red Flags: None Subjective Pt reports pain as 7/10, states he felt fine for a day after previous session, and that his symptoms then increased for several days. Pt believes his back/ hip pain is flared up currently because he did a lot of cleaning after feeling good from his previous visit. Compliance with HEP: Yes Objective Objective measurements not taken today. Treatment Aquatic Therapy Exercises performed?: Yes Forward walking: See aquatic flowsheet Assessment Skilled physical therapy interventions utilized to improve patient s impairments and work towards established goals. Patient response to treatment: Pt had high increase in R hip pain immediately when entering water, states he felt sharp pain that eased after a couple minutes. Pt required vc's for most exercises, stated pain increased most w/ hip extension. Was able to increase reps for squats. Ended session w/ seated trunk extension followed by B hamstring stretches. States pain did not increase or get better post session. Patient will benefit from continued physical therapy to continue progress towards goals and reduce painful symptoms. The rationale for today s treatment was explained to the patient. Verbal cues were provided for correct form with all exercises. Advised patient to continue with Home Exercise Program (HEP). Goals General/Ortho Pt will be IND and compliant with HEP for participation throughout POC. (Progressing) Start: 10/09/23 Expected End: 11/18/23 Pt will demo trunk AROM to at least 75% flex and ext for work duties. (Progressing) Start: 10/09/23 Expected End: 11/18/23 Patient will increase strength in BLE ot 5/5 MMT to be able to negotiate stairs and walk. (Progressing) Start: 10/09/23 Expected End: 11/18/23 Pt will be able to tolerate a 30 min session without rest breaks for ability to tolerate prolonged positioning. (Progressing) Start: 10/09/23 Expected End: 11/18/23 Pt will score 52 % or lower on the modified KAL to demo improved quality of life. (Progressing) Start: 10/09/23 Expected End: 11/18/23 Plan Plan for next session: Progress hip/ core strength, and continue stretching Time Entry Total Treatment Time Start Time: 1530 Stop Time: 1555 Time Calculation (min): 25 min PT Therapeutic Procedures Time Entry Aquatic Therapy Time Entry: 25 Noel Souza PTA documented in this encounter [facility] 10-22-2023 History of Presen t illness Narrative Images from the original note were not included. [facility] AT [address] [place] [address] Dept: [phone] Dept PHYSICAL THERAPY TREATMENT Patient Name: Kaye Cueva : 1970 Date of Service: 10/22/2023 Referring Provider: Denice Acosta AP* Visit #: 3 Diagnosis: Acute right-sided low back pain with right-sided sciatica Reason for referral/Mechanism of injury: Pt put carpet scrubber into vehicle and upon standing felt twinge in L low back in mid- Jul 2023. The next week he spent the other day on feet- prepping, cooking, serving. Upon waking the next day he had shooting pain in R back that shot down R legs. He was getting better with prednisone and was able to work (did not lift heavy). Pain is constant and sharp now and he is unable to work at this time d/t pain. Pt arrives using straight cane which he normally does not use. Patient Preferences: Kaye Precautions/Red Flags: None Subjective Pain 8/10 upon arrival d/t driving. Normally his pain has been ~3-4/10 and he has been doing better since pool visit. He will be off work until mid Oct. Compliance with HEP: Yes Objective Objective measurements not taken today. Treatment Therapeutic Exercise # of Activities: 3 Therapeutic Exercise Activity 1: HEP- reviewed and educated on frequency Activity 1 Comment: 10/09: piriformis stretch seated, seated TA, seated trunk ext Therapeutic Exercise Activity 2: Stretches Activity 2 Comment: Seated piriformis 3x30 sec B ; seated trunk ext (to neutral) 3x10 sec ; LTR x10 ea ; Single knee to chest 10 sec x5 Therapeutic Exercise Acitivity 3: Core strength/ stability Activity 3 Comment: TA november x10 ; BKFO x10 ea Assessment Skilled physical therapy interventions utilized to improve patient s impairments and work towards established goals. Patient response to treatment: Significant improvement in gait mechanics today- still using cane however pt is more upright and demos faster gordon. Pt with more pain during LTR to the R vs L. Verbal cues to hold stretch as soon as he feels pulling and to avoid pushing further into stretch- fair implementation. Verbal cues for focus on eccentric control with BKFO and to maintain TA activation. Pt will benefit from cont PT services as he is demoing improvements in gait and pain however still reports pain with ADLs and household duties. HEP updated. Patient will benefit from continued physical therapy to address goals for improved ease and mobility with household and social responsibilities. The rationale for today s treatment was explained to the patient. Verbal cues were provided for correct form with all exercises. Advised patient to continue with Home Exercise Program (HEP). Goals General/Ortho Pt will be IND and compliant with HEP for participation throughout POC. (Progressing) Start: 10/09/23 Expected End: 11/18/23 Pt will demo trunk AROM to at least 75% flex and ext for work duties. (Progressing) Start: 10/09/23 Expected End: 11/18/23 Patient will increase strength in BLE ot 5/5 MMT to be able to negotiate stairs and walk. (Progressing) Start: 10/09/23 Expected End: 11/18/23 Pt will be able to tolerate a 30 min session without rest breaks for ability to tolerate prolonged positioning. (Progressing) Start: 10/09/23 Expected End: 11/18/23 Pt will score 52 % or lower on the modified KAL to demo improved quality of life. (Progressing) Start: 10/09/23 Expected End: 11/18/23 Plan Plan for next session: Follow aquatic flowsheet and progress as pt tolerates. This was pt's last scheduled visit- today scheduled 2 more over the next two weeks. He is approved for 9 visits total. Time Entry Total Treatment Time Start Time: 1500 Stop Time: 1530 Time Calculation (min): 30 min PT Therapeutic Procedures Time Entry Therapeutic Exercise Time Entry: 30 Yessy Hussein PT documented in this encounter [facility] 10-16-2023 Evaluation + Plan note Associated Problem(s): Other emphysema (HCC) Asymptomatic. Currently not on medication. Discussed disease process and progression. Recommend smoking cessation. [facility] 10-16-2023 Miscellaneous Notes Associate d Problem(s): Other emphysema (HCC) Asymptomatic. Currently not on medication. Discussed disease process and progression. Recommend smoking cessation. Associated Problem(s): Tobacco use Recommend smoking cessation. Patient not ready to quit Associated Problem(s): Atherosclerosis Noted on CT of chest. Asymptomatic. Recommend low fat, low cholesterol diet. Quit smoking. Discussed statin- declines at this time- will do dietary changes. Recommend aspirin 81 mg daily. Associated Problem(s): Back pain with right-sided radiculopathy No red flags. Slight improvement. Off work until 11/05/2023. Continue physical therapy. Follow up in 1 month. documented in this encounter [facility] 10-16-2023 Evaluation + Plan note Associated Problem(s): Tobacco use Recommend smoking cessation. Patient not ready to quit [employer] 10-16-2023 Evaluation + Plan note Associated Problem(s): Atherosclerosis Noted on CT of chest. Asymptomatic. Recommend low fat, low cholesterol diet. Quit smoking. Discussed statin- declines at this time- will do dietary changes. Recommend aspirin 81 mg daily. [employer] [facility] 10-16-2023 Evaluation + Plan note Associated Problem(s): Back pain with right-sided radiculopathy No red flags. Slight improvement. Off work until 11/05/2023. Continue physical therapy. Follow up in 1 month. [employer] 10-16-2023 History of Presen t illness Narrative Patient was identified by name and Date of . Images from the original note were not included. 10/16/2023 Kaye Cueva (: 1970) is a 53 y.o. male , Established patient, here for evaluation of the following chief complaint(s): Back Pain and Follow-up ASSESSMENT/PLAN: 1. Back pain with right-sided radiculopathy Assessment & Plan: No red flags. Slight improvement. Off work until 11/05/2023. Continue physical therapy. Follow up in 1 month. 2. Tobacco use Assessment & Plan: Recommend smoking cessation. Patient not ready to quit 3. Atherosclerosis Assessment & Plan: Noted on CT of chest. Asymptomatic. Recommend low fat, low cholesterol diet. Quit smoking. Discussed statin- declines at this time- will do dietary changes. Recommend aspirin 81 mg daily. 4. Other emphysema (HCC) Assessment & Plan: Asymptomatic. Currently not on medication. Discussed disease process and progression. Recommend smoking cessation. Follow up in about 1 month (around 11/16/2023). SUBJECTIVE/OBJECTIVE: HPI - Kaye Cueva (: 1970) is a 53 y.o. male , Established patient, here for the evaluation of the following chief complaint(s): Back Pain and Follow-up Back pain-patient initially strained his back in early July and when it did not get better on its own he was referred to physical therapy. He has had 2 sessions of physical therapy and reports improvement of his symptoms. Expected 6 weeks of physical therapy. 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 Initially planned for him to go back to work October 25, however he does not think he will be able to go back at that time. Still has significant amount of pain radiating down the right leg with flexing, standing sitting or walking for periods of time. Denies any bowel or bladder changes, no right leg weakness CT of the chest for lung cancer screening was completed last month, no nodules or masses were seen however was noted emphysema and atherosclerotic calcifications of the aorta and coronary arteries. Discussed these findings with the patient today. He denies any chest pain or shortness of breath. Continues to smoke and is not ready to quit. We discussed his last lipid panel which had an elevated LDL of 113. To reduce his risk of heart attack and stroke, discussed starting a statin medication however patient wishes to continue with dietary changes to lower his LDL under 100. Recommend also starting aspirin 81 mg daily which he is agreeable to. Prior to Admission medications Not on File Review of Systems Constitutional: Negative for activity change, appetite change and fatigue. Respiratory: Negative. Cardiovascular: Negative. Gastrointestinal: Negative. Genitourinary: Negative for difficulty urinating. Musculoskeletal: Positive for back pain and gait problem. Neurological: Positive for numbness (Intermittent with certain movements right thigh). Vitals: 10/16/23 0735 10/16/23 0833 BP: (!) 143/79 138/78 Pulse: 101 Resp: 24 Temp: 37 C (98.6 F) TempSrc: Infrared SpO2: 97% Weight: 143 lb (64.9 kg) Physical Exam Constitutional: General: He is not in acute distress. Appearance: Normal appearance. He is not ill-appearing. HENT: Head: Normocephalic and atraumatic. Eyes: Conjunctiva/sclera: Conjunctivae normal. Cardiovascular: Rate and Rhythm: Normal rate and regular rhythm. Pulses: Normal pulses. Heart sounds: Normal heart sounds. Pulmonary: Effort: Pulmonary effort is normal. Musculoskeletal: Lumbar back: Spasms and tenderness present. Decreased range of motion. Negative right straight leg raise test and negative left straight leg raise test. Back: Right lower leg: No edema. Left lower leg: No edema. Skin: General: Skin is warm and dry. Neurological: Mental Status: He is alert and oriented to person, place, and time. An electronic signature was used to authenticate this note. AMANDA Martines CNP 10/16/2023 8:33 AM documented in this encounter [facility] 10-16-2023 Instructions AMANDA Martines CNP - 10/16/2023 7:40 AM EST Aspirin 81 mg daily The following attachments cannot be sent through Care Everywhere.Low Cholesterol, Saturated Fat, and Trans Fat Diet (Armenian)documented in this encounter [facility] 10-15-2023 History of Presen t illness Narrative Images from the original note were not included. [facility] AT [address] [place] [address] Dept: [phone] Dept PHYSICAL THERAPY TREATMENT Patient Name: Kaye Cueva : 1970 Date of Service: 10/15/2023 Referring Provider: Denice Acosta AP* Visit #: 2 Diagnosis: Acute right-sided low back pain with right-sided sciatica Reason for referral/Mechanism of injury: Pt put carpet scrubber into vehicle and upon standing felt twinge in L low back in mid- Jul 2023. The next week he spent the other day on feet- prepping, cooking, serving. Upon waking the next day he had shooting pain in R back that shot down R legs. He was getting better with prednisone and was able to work (did not lift heavy). Pain is constant and sharp now and he is unable to work at this time d/t pain. Pt arrives using straight cane which he normally does not use. Patient Preferences: Kaye Precautions/Red Flags: None Subjective Pt arrives reporting 7-8/10 pain in R low back and hip. States he has been passing out from pain during HEP but is always lying down when it happens. Compliance with HEP: Yes Objective Objective measurements not taken today. Treatment Aquatic Therapy Exercises performed?: Yes Forward walking: See aquatic flowsheet Assessment Skilled physical therapy interventions utilized to improve patient s impairments and work towards established goals. Patient response to treatment: Pt reports calf tightness and numbness after calf raises. Standing rest breaks taken after every exercise d/t increased R hip pain. Verbal cues to reduce ROM of exercise to perform in painfree range. Only able to complete 6 squats before pain in low back becomes too intense. Patient will benefit from continued physical therapy to address goals for improved ease and mobility with household and social responsibilities. The rationale for today s treatment was explained to the patient. Verbal cues were provided for correct form with all exercises. Advised patient to continue with Home Exercise Program (HEP). Goals General/Ortho Pt will be IND and compliant with HEP for participation throughout POC. (Progressing) Start: 10/09/23 Expected End: 11/18/23 Pt will demo trunk AROM to at least 75% flex and ext for work duties. (Progressing) Start: 10/09/23 Expected End: 11/18/23 Patient will increase strength in BLE ot 5/5 MMT to be able to negotiate stairs and walk. (Progressing) Start: 10/09/23 Expected End: 11/18/23 Pt will be able to tolerate a 30 min session without rest breaks for ability to tolerate prolonged positioning. (Progressing) Start: 10/09/23 Expected End: 11/18/23 Pt will score 52 % or lower on the modified KAL to demo improved quality of life. (Progressing) Start: 10/09/23 Expected End: 11/18/23 Plan Plan for next session: Initiate land activities- try LTR, BKFO, TA, TA november, manual therapy. Time Entry Total Treatment Time Start Time: 1328 Stop Time: 1356 Time Calculation (min): 28 min PT Therapeutic Procedures Time Entry Aquatic Therapy Time Entry: Yessy Hussein PT documented in this encounter [facility] 10-09-2023 History of Presen t illness Narrative Images from the original note were not included. SABINE [place] [facility] [address] [place] [address] Dept: [phone] Dept PHYSICAL THERAPY EVALUATION Patient Name: Kaye Cueva : 1970 Date of Service: 10/09/2023 Referring Provider: Denice Acosta AP* Visit #: 1 Diagnosis: Acute right-sided low back pain with right-sided sciatica General Information Reason for referral/Mechanism of injury: Pt put carpet scrubber into vehicle and upon standing felt twinge in L low back in mid- Jul 2023. The next week he spent the other day on feet- prepping, cooking, serving. Upon waking the next day he had shooting pain in R back that shot down R legs. He was getting better with prednisone and was able to work (did not lift heavy). Pain is constant and sharp now and he is unable to work at this time d/t pain. Pt arrives using straight cane which he normally does not use. Patient Preferences: Kaye Precautions/Red Flags: None Fall Risk: No Work status: temporary leave d/t dx until beginning of Oct. Pt is a facility maintenance supervisor. Home Setup: 2nd story bed and bath PMHX: Kaye has a past medical history of Arthritis. PSHX: Kaye has a past surgical history that includes Carpal tunnel release (Left). Have you experienced any anxiety or depression?: No Have you experienced thoughts of self-harm or suicidal thoughts?: No Physician follow-up appointment?: Yes Subjective Chief Complaint: Pt put carpet scrubber into vehicle and upon standing felt twinge in L low back in mid- Jul 2023. The next week he spent the other day on feet- prepping, cooking, serving. Upon waking the next day he had shooting pain in R back that shot down R legs. He was getting better with prednisone and was able to work (did not lift heavy). Current pain is located in R low back and radiates down RLE to ankle. Pain is constant and sharp now and he is unable to work at this time d/t pain. He is having cramping recently also. Pt arrives using straight cane which he normally does not use. Xray 08/23/23: Minor degenerative change with spurring along with some disc space narrowing at L5-S1. No fracture. Patient confirmed name and date of this session. Pain: Current: 4/10 Best: 4/10 Worst: 10/10 Symptoms Aggravated by: ADLs, lifting, walking, sitting >2 hrs, standing >20 min, sleeping (sleeps <4 hrs), riding in car >30 mins), household duties, stair negotiation Symptoms Relieved by: change in position, prednisone Prior Level of Function: IND without restrictions Current Level of Function: Unable to work, sits in shower if needed, rest breaks required for ADLs and household duties Patient s Stated Goal: Reduce pain and return to work Outcome Measures Oswestry Low Back Disability: 50 = 62% Objective BACK Observation: Pt changes positions frequently Gait: with straight cane- antalgic, leans against [place] STS transfers: Requires UE support Date Recorded: 10/09/2023 Trunk AROM Percentage (%) Flexion (flex) 50* UE needed to stand up again, RLE numb Extension (ext) 0* RLE numb Right side bending (SBR) seated 100 Left side bending (SBL) seated 100 Right rotation (rotR) seated 75* Left rotation (rotL) seated 100 *= pain in affected area Date 10/09/2023 MMT Right Left Hip Flexion Unable to assess d/t pain 5/5 Hip Abduction hooklying 4-/5* 4/5 Hip Adduction 4+/5 4+/5 Hip Extension At least 3/5 NT Knee Extension 5/5 5/5 Knee Flexion 5/5 5/5 Ankle Dorsiflexion (DF) 5/5 5/5 Ankle Plantarflexion (PF) 5/5 5/5 *= pain in affected area Bridge: 25 % ROM, UE support, mild instability observed d/t core and glute weakness, P! Lower Extremity Flexibility Date 10/09/2023 R L Hamstrings Unable to assess d/t pain Difficulty to determine d/t R LBP Piriformis Unable to assess d/t pain mild restriction Palpation: TTP at R PSIS and R inferioloateral glute Long Sit Test: Unable to assess d/t pain Prone lying did not change s/s in RLE Significant pain throughout session requiring frequent position changes and inability to assess all components. Assessment Kaye is a 53 y.o. patient who arrives to outpatient PT with s/s consistent with c/o R sided LBP with R radicular symptoms. Pt presents with the following impairments: weakness core, weakness BLE, lumbopelvic tightness, impaired gait, limited trunk ROM. These impairments contribute to difficulty in activity limitations and participation restrictions including ADLs, lifting, walking, sitting >2 hrs, standing >20 min, sleeping (sleeps <4 hrs), riding in car >30 mins), household duties, stair negotiation . The pt will benefit from skilled PT services to address the above stated impairments and functional limitations to maximize participation and ease in household, social, and work related activities. Evaluation complexity is low secondary to: patient has 1-2 personal factors and/or comorbidities that will affect plan of care, therapy will be addressing 1-2 elements, and clinical presentation is unstable. Body Systems Affected: musculoskeletal Rehab Potential: Good Learning Preferences: demonstration, explanation, performance, and printed materials Barriers to Rehab: duration of symptoms and severity Goals General/Ortho Pt will be IND and compliant with HEP for participation throughout POC. (Initiated) Start: 10/09/23 Expected End: 11/18/23 Pt will demo trunk AROM to at least 75% flex and ext for work duties. (Initiated) Start: 10/09/23 Expected End: 11/18/23 Patient will increase strength in BLE ot 5/5 MMT to be able to negotiate stairs and walk. (Initiated) Start: 10/09/23 Expected End: 11/18/23 Pt will be able to tolerate a 30 min session without rest breaks for ability to tolerate prolonged positioning. (Initiated) Start: 10/09/23 Expected End: 11/18/23 Pt will score 52 % or lower on the modified KAL to demo improved quality of life. (Initiated) Start: 10/09/23 Expected End: 11/18/23 Plan Frequency and Duration: 1/wk for 4 weeks (only 2 scheduled currently then will assess ability to attend more based on financial status. ) Therapeutic Contents: aquatics/pool, client education, group therapy, home exercise program, manual therapy techniques, self care/home management, therapeutic activities, therapeutic exercise, and modalities as needed Plan for next session: Next session try aquatic PT- activities with neutral spine alignment. After that try land based PT. Risks and benefits were discussed with the patient and/or family, and the patient and/or family participated with the plan of care and agrees. Treatment Therapeutic Exercise # of Activities: 3 Therapeutic Exercise Activity 1: HEP- reviewed and educated on frequency Activity 1 Comment: 10/09: piriformis stretch seated, seated TA, seated trunk ext Therapeutic Exercise Activity 2: Stretches Activity 2 Comment: Seated piriformis x30 sec R ; seated trunk ext (to neutral) 3x10 sec Therapeutic Exercise Acitivity 3: Core strenght Activity 3 Comment: TA hold 3 sec x5 Patient Education: Anatomy/ physiology, benefit of prone positioning as a goal, HEP, POC Time Entry Total Treatment Time Start Time: 1405 Stop Time: 1444 Time Calculation (min): 39 min PT Evaluation Time Entry PT Evaluation (Low) Time Entry: 31 PT Therapeutic Procedures Time Entry Therapeutic Exercise Time Entry: 8 Yessy Hussein, PT documented in this encounter [facility] 09-18-2023 Evaluation + Plan note Associated Problem(s): Low back strain, subsequent encounter No red flags. Will refer patient to physical therapy. Continue ibuprofen [id number] as needed for pain. FMLA forms filled out, expect 6 to 8 weeks off work at this time. Follow-up in 1 month [facility] 09-18-2023 Miscellaneous Notes Associate d Problem(s): Low back strain, subsequent encounter No red flags. Will refer patient to physical therapy. Continue ibuprofen [id number] as needed for pain. FMLA forms filled out, expect 6 to 8 weeks off work at this time. Follow-up in 1 month documented in this encounter [facility] 09-18-2023 History of Presen t illness Narrative Patient was identified by name and Date of . Images from the original note were not included. 09/18/2023 Kaye Cueva (: 1970) is a 53 y.o. male , Established patient, here for evaluation of the following chief complaint(s): FMLA Forms ASSESSMENT/PLAN: 1. Acute right-sided low back pain with right-sided sciatica Assessment & Plan: No red flags. Will refer patient to physical therapy. Continue ibuprofen [id number] as needed for pain. FMLA forms filled out, expect 6 to 8 weeks off work at this time. Follow-up in 1 month Orders: - [facility] Follow up for with primary care provider as scheduled. SUBJECTIVE/OBJECTIVE: HPI - Kaye Cueva (: 1970) is a 53 y.o. male , Established patient, here for the evaluation of the following chief complaint(s): FMLA Forms Presents today for continued low back pain with radiation down the right leg. Initially strained his back in July. Missed several days of work throughout July due to his low back pain. Waxed and waned for a few weeks but now has been consistently bothering him through August. 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 X-ray August 23, 2023 showed minor degenerative changes with spurring and disc space narrowing at L5-S1. Denies any lower extremity weakness no significant change in numbness or tingling no change in bowel or bladder Prior to Admission medications Not on File Review of Systems Constitutional: Negative for activity change, appetite change and fatigue. Respiratory: Negative. Cardiovascular: Negative. Gastrointestinal: Negative. Genitourinary: Negative for difficulty urinating. Musculoskeletal: Positive for back pain and gait problem. Neurological: Positive for numbness. Vitals: 09/18/23 0946 BP: 113/70 Pulse: (!) 114 Resp: 24 Temp: 36.5 C (97.7 F) TempSrc: Infrared SpO2: 98% Weight: 137 lb (62.1 kg) Physical Exam Constitutional: General: He is not in acute distress. Appearance: Normal appearance. He is not ill-appearing. HENT: Head: Normocephalic and atraumatic. Cardiovascular: Rate and Rhythm: Normal rate and regular rhythm. Pulmonary: Effort: Pulmonary effort is normal. Musculoskeletal: Lumbar back: Spasms and tenderness present. Decreased range of motion. Negative right straight leg raise test and negative left straight leg raise test. Back: Neurological: Mental Status: He is alert and oriented to person, place, and time. An electronic signature was used to authenticate this note. AMANDA Martines CNP 09/18/2023 11:00 AM documented in this encounter [facility] 09-13-2023 Telephone encount er Note Name of caller: Kaye Contact phone number: [phone] Relationship to Patient: patient Provider: Dr. Tyler Practice: [facility] Chief Complaint/Reason for Call: patient states that he has paper work that needs to be filled out for his employer. Patient states that he is still having very bad back pain. Patient is going to drop forms off at office today. Please advise. Best time of day caller can be reached: any Patient advised that office/PCP has 24-48 business hours to return their call: No [facility] 09-13-2023 Miscellaneous Notes Formattin g of this note might be different from the original. Name of caller: Kaye Contact phone number: [phone] Relationship to Patient: patient Provider: Dr. Tyler Practice: [facility] Chief Complaint/Reason for Call: patient states that he has paper work that needs to be filled out for his employer. Patient states that he is still having very bad back pain. Patient is going to drop forms off at office today. Please advise. Best time of day caller can be reached: any Patient advised that office/PCP has 24-48 business hours to return their call: No documented in this encounter [facility] 09-05-2023 Telephone encount er Note Name of caller: Any Contact phone number: [phone] Relationship to Patient: Carelon Provider: Dr. Tyler Practice: [facility] Chief Complaint/Reason for Call: Any called regarding the low dose CT scan and I informed her we have the PA approval already. [id number], see referrals. FYI Best time of day caller can be reached: any Patient advised that office/PCP has 24-48 business hours to return their call: N/A [facility] 09-05-2023 Miscellaneous Notes Formattin g of this note might be different from the original. Name of caller: Any Contact phone number: [phone] Relationship to Patient: Carelon Provider: Dr. Tyler Practice: [facility] Chief Complaint/Reason for Call: Any called regarding the low dose CT scan and I informed her we have the PA approval already. [id number], see referrals. FYI Best time of day caller can be reached: any Patient advised that office/PCP has 24-48 business hours to return their call: N/A documented in this encounter [facility] 08-28-2023 Evaluation + Plan note Associated Problem(s): Low back strain, subsequent encounter Symptoms improving. No red flags [facility] 08-28-2023 Miscellaneous Notes Associate d Problem(s): Low back strain, subsequent encounter Symptoms improving. No red flags Associated Problem(s): Elevated blood pressure reading Blood pressure recheck today good 130/88. Currently not on any medications for blood pressure Associated Problem(s): Spasm of muscle of lower back (Resolved 08/28/2023) No red flags. Symptoms are improving Associated Problem(s): Tobacco use Encourage smoking cessation. Not ready to quit documented in this encounter [facility] 08-28-2023 Evaluation + Plan note Associated Problem(s): Elevated blood pressure reading Blood pressure recheck today good 130/88. Currently not on any medications for blood pressure [facility] 08-28-2023 Evaluation + Plan note Associated Problem(s): Spasm of muscle of lower back (Resolved 08/28/2023) No red flags. Symptoms are improving [facility] 08-28-2023 Evaluation + Plan note Associated Problem(s): Tobacco use Encourage smoking cessation. Not ready to quit [facility] 08-28-2023 History of Presen t illness Narrative Patient was identified by name and Date of . HEALTH MAIN: Hep B-declined Lipid-pended HIV/Hep C-declined Colon-pended MMR-declined Pneumo-declined Tdap-declined Zoster-declined Lung-declined Flu-declined Covid-declined Images from the original note were not included. 08/28/2023 Kaye Cueva (: 1970) is a 53 y.o. male , Established patient, here for evaluation of the following chief complaint(s): Annual Exam and Health Maintenance (/Hep B-declined/Lipid-pended/HIV/Hep C-declined/Colon-pended/MMR-dec lined/Pneumo-declined/Tdap-decl ined/Zoster-declined/Lung-decli jose/Flu-declined/Covid-declined ) ASSESSMENT/PLAN: 1. Annual physical exam 2. Screening for cholesterol level - Lipid panel 3. Screening for prostate cancer - PSA Total (Screening) 4. Screening for deficiency anemia - CBC 5. Elevated blood pressure reading Assessment & Plan: Blood pressure recheck today good 130/88. Currently not on any medications for blood pressure Orders: - Comprehensive metabolic panel 6. Screening for thyroid disorder - TSH 7. Tobacco use Assessment & Plan: Encourage smoking cessation. Not ready to quit Orders: - CT lung screening low dose 8. Low back strain, subsequent encounter Assessment & Plan: Symptoms improving. No red flags 9. Spasm of muscle of lower back Assessment & Plan: No red flags. Symptoms are improving Follow up for Yearly Wellness Visit.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 Found INFORMATION SOURCE (unrecogn ized section and content) DATE CREATED AUTHOR 04/27/2022 [facility] DATE CREATED AUTHOR AUTHOR'S ORGANIZ ATION 04/12/2024 [facility] DATE CREATED AUTHOR AUTHOR'S ORGANIZ ATION 11/13/2024 [facility] DATE CREATED AUTHOR AUTHOR'S ORGANIZ ATION 11/21/2024 [facility] Reason for Visit (unrecogniz ed section and content) Reason Onset Date Comments Back Pain 07/26/2023 Reason Comments New Patient Back Pain Establish Care Reason Comments Back Pain X1 week ago-went to urgent care Reason Comments Annual Exam Health Maintenance Hep B-declinedLipid- pendedHIV/Hep Z-dmfckfyxIwezi-shegqvTTG-tkfgqfwaTlawua-nqovkvnbNptz-clxisfbfTlbs kp-vikfghkfDasi-qmysunwrMsv-declinedCovid-declined Reason Onset Date Comments Prior Authorization 09/05/2023 Already had a note that the PA is done for low dose CT scan , see Referrals in chart, Reason Comments FMLA Forms Specialty Diagnoses / Procedures Referred By Contac t Referred To Contact Physical Therapy Diagnoses Acute right-sided low back pain with right-sided sciatica Procedures ME OFFICE/OUTPATIENT NEW HIGH MDM 60-74 MINUTES CharlinealSamanthaDenice, ELECTRICIAN OUTSIDE - PROPULSION MOTOR AND GENERATOR REPAIRER [address] [place] [address] [facility] [address] [place] [id number] Referral ID Status Reason Start Date Expiration Date Visits Requested Visits Authorized [id number] Pending Review Eval and Treat 09/12/2024 2 2 Specialty Diagnoses / Procedures Referred By Contac t Referred To Contact Radiology Diagnoses Tobacco use Procedures CT lung screening low dose Bridenthal Denice, ELECTRICIAN OUTSIDE - PROPULSION MOTOR AND GENERATOR REPAIRER [address] [place] [address] [place] [address] Referral ID Status Reason Start Date Expiration Date Visits Re quested Visits Authorized [id number] Closed 08/28/2023 08/27/2024 1 1 Referral ID Status Reason Start Date Expiration Date Visits Requested Visits Authorized [id number] Authorized Eval and Treat 09/18/2023 10 10 Reason Comments Back Pain Follow-up Reason Onset Date Comments Forms/questionnaires 09/13/2023 Reason Onset Date Comments Other 11/13/2024 Annual Lung Scre ening Reminder Care Teams (unrecognized sec tion and content) Batch Unloader Relationship Specialty Start Date End Date Matty Tyler MD [address] [facility] [place] [address] PCP - General Family Medicine 07/31/23 Batch Unloader Relationship Specialty Start Date End Date Matty Tyler MD [address] [place] [address] PCP - General Family Medicine 07/31/23 Batch Unloader Relationship Specialty Start Date End Date Matty Tyler MD [address] [place] [address] PCP - General Family Medicine 07/31/23 Batch Unloader Relationship Specialty Start Date End Date Matty Tyler MD [address] [place] [address] PCP - General Family Medicine 07/31/23 Batch Unloader Relationship Specialty Start Date End Date Matty Tyler MD [address] [place] [address] PCP - General Family Medicine 07/31/23 Batch Unloader Relationship Specialty Start Date End Date Matty Tyler MD [address] [place] [address] PCP - General Family Medicine 07/31/23 Batch Unloader Relationship Specialty Start Date End Date Matty Tyler MD [address] [place] [address] PCP - General Family Medicine 07/31/23 Batch Unloader Relationship Specialty Start Date End Date Matty Tyler MD [address] [facility] [place] [address] PCP - [facility] 07/31/23 Batch Unloader Relationship Specialty Start Date End Date Matty Tyler MD [address] [facility] [place] [address] PCP - [facility] 07/31/23 Batch Unloader Relationship Specialty Start Date End Date Matty Tyler MD [address] [facility] [place] [address] PCP - [facility] 07/31/23 Batch Unloader Relationship Specialty Start Date End Date Matty Tyler MD [address] [facility] [place] [address] PCP - [facility] 07/31/23 Batch Unloader Relationship Specialty Start Date End Date Matty Tyler MD [address] [facility] [place] [address] PCP - [facility] 07/31/23 FOR RECORDS PERTAINING TO PATIENTS WHO ARE OR HAVE BEEN ENROLLED IN A CHEMICAL DEPENDENCY/SUBSTANCEABUSE PROGRAM, SOME INFORMATION MAY BE OMITTED. This clinical summary was aggregated from multiple sources. Caution should be exercised in using it in the provision of clinical care. This summary normalizes information from multiple sources, and as a consequence, information in this document may materially change the coding, format and clinical context of patient data. In addition, data may be omitted in some cases. CLINICAL DECISIONS SHOULD BE BASED ON THE PRIMARY CLINICAL RECORDS. [facility]. provides no warranty or guarantee of the accuracy or completeness of information in this document.
[2025-09-08 08:12] LABS: Hematocrit 45.6 % (40-54); Hemoglobin 15.0 g/dL (13.0-16.5); Immature Granulocytes Count 0.030 X10^3/uL (0.0-0.0); Mean Corp Hgb Conc 32.9 g/dL (32-36); Mean Corpuscular Volume 94.6 fL (80-94); Mean Platelet Vol. 8.8 fl (6.2-12.0); NRBC Flagged by Analyzer 0 % (0-5); Platelet Count 386 K/mm3 (150-450); RBC Distribution Width CV 12.2 % (11.6-14.6); RBC Distribution Width SD 42.9 fl (35.1-43.9); Red Blood Count 4.82 M/mm3 (4.6-6.2); White Blood Count 9.7 K/mm3 (4.4-11.0)
[2025-09-08 08:47] LABS: AST(SGOT) 25 U/L (<=37); Alanine Aminotransfer ALT/SGPT 29 U/L (<=46); Albumin, Serum 4.8 g/dL (3.5-5.0); Alkaline Phosphatase 72 U/L (40-129); Anion Gap 11 (5-15); BUN 18 mg/dL (4-19); BUN/Creat Ratio 22.2 RATIO (10-20); Calcium,Total 9.4 mg/dL (7.6-11.0); Carbon Dioxide 26.9 mmol/L (21.0-32.0); Chloride 101 mmol/L (98-108); Cholesterol 191 mg/dL (<=200); Globulin 2.8 g/dL (2.2-4.2); Glucose 94 mg/dL (70-99); Low Density Lipoprotein Calc. 110 mg/dL; PSA,Total - Annual Screen 1.25 ng/mL (0.02-4.00); Potassium 4.0 mmol/L (3.3-5.1); Triglycerides 63 mg/dL; Very Low Density Lipoprotein 13 mg/dL (5-40); cholesterol:hdl ratio screen 2.77
== END | disposition home or self-care (01) ==
LOC: LAB 07:15
PROVIDERS: PCP Family Medicine
DX: Z00.00 Encounter for general adult medical examination without abnormal findings (principal); Z12.5 Encounter for screening for malignant neoplasm of prostate; Z13.1 Encounter for screening for diabetes mellitus
CPT/HCPCS: 36415; 80053; 80061; 83036; 84153; 85025; G0103